=== PATIENT | female | born 1930 | race Asian ===

== ENCOUNTER 2019-03-16 16:40 | Inpatient (IN) | payer MEDICARE, MEDICAID ==
[2019-03-16] VITALS (26 sets, daily range): BP systolic 69–123; BP diastolic 31–60
[~2019-03-16] VITALS: Ht 154.9 cm; Wt 52.2 kg
[2019-03-16] MEDS ORDERED: MINOXIDIL2.5 MG PO (17:10)
[2019-03-16] MEDS ORDERED: ADALAT10 MG ORAL (17:10)
[2019-03-16] MEDS ORDERED: COREG6.25 MG ORAL (17:10)
[2019-03-16] MEDS ORDERED: CALCIUM + VITA1 EAC1 PO (17:10)
[2019-03-16] MEDS ORDERED: COLACE100 MG ORAL (17:10)
[2019-03-16] MEDS ORDERED: FOLIC ACID1 MG ORAL (17:11)
[2019-03-16] MEDS ORDERED: ATORVASTATIN CA10 MG ORAL (17:11)
[2019-03-16] MEDS ORDERED: MELATONIN3 M3 PO (17:11)
[2019-03-16] MEDS ORDERED: MULTIVITAMINS1 EAC8 ORAL (17:11)
[2019-03-16] MEDS ORDERED: SENNA8.6 M2 PO (17:11)
[2019-03-16] MEDS ORDERED: AMIODARONE HCL400 M1 ORAL (17:11)
[2019-03-16] MEDS ORDERED: ELIQUIS2.5 MG PO (17:11)
[2019-03-16 17:38] LABS: BASOPHILS % (AUTO) 0.7 % (0.0-2.0); EOSINOPHILS % (AUTO) 1.3 % (0.0-3.0); HEMATOCRIT 26.2 % (37.0-47.0); HEMOGLOBIN 8.7 G/DL (12.0-16.0); LYMPHOCYTES % (AUTO) 25.5 % (20.0-45.0); MEAN CORPUSCULAR VOLUME 96 FL (80-99); MONOCYTES % (AUTO) 12.9 % (1.0-10.0); NEUTROPHILS % (AUTO) 59.7 % (45.0-75.0); PLATELET COUNT 122 K/UL (150-450); RED BLOOD COUNT 2.72 M/UL (4.20-5.40); RED CELL DISTRIBUTION WIDTH 15.7 % (11.6-14.8); WHITE BLOOD COUNT 6.1 K/UL (4.8-10.8)
[2019-03-16 17:42] LABS: INR 1.2 (0.9-1.1)
[2019-03-16 17:57] LABS: APPEARANCE,URINE CLEAR; BILIRUBIN, URINE NEGATIVE (NEGATIVE); GLUCOSE, URINE (UA) 2+ (NEGATIVE); KETONES,URINE NEGATIVE (NEGATIVE); LEUKOCYTE ESTERASE ,URINE NEGATIVE (NEGATIVE); NITRITE,URINE NEGATIVE (NEGATIVE); PH,URINE 8 (4.5-8.0); PROTEIN,URINE 4+ (NEGATIVE); UROBILINOGEN,URINE NORMAL MG/DL (0.0-1.0)
[2019-03-16 18:06] LABS: ANION GAP 8 mmol/L (5-15); BLOOD UREA NITROGEN 17 mg/dL (7-18); CALCIUM 7.5 MG/DL (8.5-10.1); CARBON DIOXIDE 31 MMOL/L (21-32); CHLORIDE 102 MMOL/L (98-107); CREATININE 4.2 MG/DL (0.55-1.30); POTASSIUM 3.4 MMOL/L (3.5-5.1); SODIUM 141 MMOL/L (136-145)
--- NOTE | 2019-03-16 18:11 | Diagnostic Imaging Report ---
EXAM: XR Chest, 1 View CLINICAL HISTORY: SOB TECHNIQUE: Frontal view of the chest. COMPARISON: No relevant prior studies available. FINDINGS: Lungs: Retrocardiac consolidation or atelectatic correlate to exclude pneumonia. Diffuse linear interstitial prominence bilaterally. Pleural space: Bilateral pleural effusions, moderate on the right and small on the left with passive atelectasis. No pneumothorax. Heart: Cardiomegaly. Mediastinum: Unremarkable. Bones/joints: Unremarkable. Vasculature: Left axillary region vascular stent. IMPRESSION: 1. Findings suggesting CHF or volume overload. 2. Retrocardiac consolidation or atelectatic correlate to exclude pneumonia. 3. Cardiomegaly. 4. Additional findings above.
[2019-03-16 18:15] LABS: COLOR,URINE YELLOW
[2019-03-16] MEDS ORDERED: DOPamine 400mg/250ml 250 ML IV SCH (18:15)
[2019-03-16 18:19] LABS: ALANINE AMINOTRANSFERASE 14 U/L (12-78); ALBUMIN 2.5 G/DL (3.4-5.0); ALBUMIN/GLOBULIN RATIO 0.7 (1.0-2.7); ALKALINE PHOSPHATASE 92 U/L (46-116); ASPARTATE AMINO TRANSFERASE 22 U/L (15-37); BILIRUBIN,TOTAL 0.7 MG/DL (0.2-1.0); CKMB < 0.5 NG/ML (0.0-3.6); CREATINE KINASE 18 U/L (26-308)
[2019-03-16] MEDS ORDERED: Lidocaine 1% MPF 10mg/ml 5ml INJ ONE (19:30)
--- NOTE | 2019-03-16 20:03 | Emergency Room Report ---
History of Present Illness General Chief Complaint: General Complaint Source: Patient, Medical Record Present Illness HPI Patient is an a 88-year-old female brought in by EMS after increased generalized weakness and dizziness. Patient had prior history of end-stage renal disease and was dialyzed yesterday. Was sent in from [facility]. Patient primary doctor is Dr. Lambert. But noted to be hypotensive patient was noted to be hypotensive in the field. She had a slow heart rate. She does take blood pressure medications regularly.Patient was noted to be DNR but does have limited interventions.She denies any current locations of pain. She does report having some prior surgery to the left lower extremity.Dialysis access was noted to be in the left upper extremity. Allergies: Coded Allergies: No Known Allergies (Unverified , 03/16/19) Patient History Past Medical History: see triage record Reviewed Nursing Documentation: PMH: Agreed; PSxH: Agreed Nursing Documentation-PMH Past Medical History: No History, Except For Hx Cardiac Problems: Yes Hx Hypertension: Yes Hx Dialysis: Yes - access to left upper arm Review of Systems All Other Systems: negative except mentioned in HPI Physical Exam Vital Signs Date Time Temp Pulse Resp B/P (MAP) Pulse Ox O2 Delivery O2 Flow Rate FiO2 03/16/19 16:40 44 14 77/49 (58) 99 Non-Rebreather 15.0 03/16/19 16:40 97.8 General Appearance: alert, Chronically Ill ENT: normal ENT inspection Neck: supple, limited range of motion Respiratory: lungs clear, normal breath sounds Cardiovascular #1: normal peripheral pulses, no edema Gastrointestinal: normal inspection, non tender, soft Musculoskeletal: back normal, other - Bilateral lower extremity pulses intact. Neurologic: alert, motor weakness Psychiatric: normal inspection Skin: no rash Procedures Critical Care Time Critical Care Time Patient had a critical medical condition which untreated could potentially result in life or limb threatening injury. Total critical care time excluding procedures approximately 45 minutes. Central Line Central Line : Consent: Written Central Line Lumen: triple Maximal Sterile Barrier Tech: yes cap, yes mask, yes sterile gown, yes sterile gloves, yes large sterile sheet, yes hand hygiene, yes chlorhexidine prep Central Line Postion: femoral (R) Anesthesia: local cc's of anesthesia: 7 Complications: none Central Line Post Position: sutured, good blood return Attempts: One Patient Tolerated: Well Complications: None Medical Decision Making Diagnostic Impression: Primary Impression: Symptomatic bradycardia Additional Impression: End stage renal disease ER Course Patient present for increased generalized weakness. Differential diagnosis includes not limited to bradycardia, myocardial infarction, hyperkalemia, medication overdose among others. Because of complexity of patient's case laboratory tests and imaging studies were ordered. EKG interpreted by me showed atrial fibrillation with slow ventricular response rate of 46. Patient started on dopamine with some improvement in her heart rate and blood pressure. Patient was consented for central venous catheter and a right-sided femoral vein line was placed with ultrasound guidance. Patient tolerated this well. She was maintained on dopamine. Dr. Edwardo Liu was contacted for inpatient management due to covering physician for Dr. Lambert. Labs Test 03/16/19 17:18 03/16/19 17:20 03/16/19 18:47 White Blood Count 6.1 K/UL (4.8-10.8) Red Blood Count 2.72 M/UL (4.20-5.40) Hemoglobin 8.7 G/DL (12.0-16.0) Hematocrit 26.2 % (37.0-47.0) Mean Corpuscular Volume 96 FL (80-99) Mean Corpuscular Hemoglobin 32.1 PG (27.0-31.0) Mean Corpuscular Hemoglobin Concent 33.4 G/DL (32.0-36.0) Red Cell Distribution Width 15.7 % (11.6-14.8) Platelet Count 122 K/UL (150-450) Mean Platelet Volume 8.2 FL (6.5-10.1) Neutrophils (%) (Auto) 59.7 % (45.0-75.0) Lymphocytes (%) (Auto) 25.5 % (20.0-45.0) Monocytes (%) (Auto) 12.9 % (1.0-10.0) Eosinophils (%) (Auto) 1.3 % (0.0-3.0) Basophils (%) (Auto) 0.7 % (0.0-2.0) Prothrombin Time 13.0 SEC (9.30-11.50) Prothromb Time International Ratio 1.2 (0.9-1.1) Activated Partial Thromboplast Time 38 SEC (23-33) Sodium Level 141 MMOL/L (136-145) Potassium Level 3.4 MMOL/L (3.5-5.1) Chloride Level 102 MMOL/L (98-107) Carbon Dioxide Level 31 MMOL/L (21-32) Anion Gap 8 mmol/L (5-15) Blood Urea Nitrogen 17 mg/dL (7-18) Creatinine 4.2 MG/DL (0.55-1.30) Estimat Glomerular Filtration Rate mL/min (>60) Glucose Level 227 MG/DL (74-106) Calcium Level 7.5 MG/DL (8.5-10.1) Total Bilirubin 0.7 MG/DL (0.2-1.0) Aspartate Amino Transf (AST/SGOT) 22 U/L (15-37) Alanine Aminotransferase (ALT/SGPT) 14 U/L (12-78) Alkaline Phosphatase 92 U/L (46-116) Total Creatine Kinase 18 U/L (26-308) Creatine Kinase MB < 0.5 NG/ML (0.0-3.6) Creatine Kinase MB Relative Index 2.7 Troponin I 0.021 ng/mL (0.000-0.056) Total Protein 6.2 G/DL (6.4-8.2) Albumin 2.5 G/DL (3.4-5.0) Globulin 3.7 g/dL Albumin/Globulin Ratio 0.7 (1.0-2.7) Urine Color Yellow Urine Appearance Clear Urine pH 8 (4.5-8.0) Urine Specific [place] 1.010 (1.005-1.035) Urine Protein 4+ (NEGATIVE) Urine Glucose (UA) 2+ (NEGATIVE) Urine Ketones Negative (NEGATIVE) Urine Blood 2+ (NEGATIVE) Urine Nitrite Negative (NEGATIVE) Urine Bilirubin Negative (NEGATIVE) Urine Urobilinogen Normal MG/DL (0.0-1.0) Urine Leukocyte Esterase Negative (NEGATIVE) Urine RBC 5-10 /HPF (0 - 2) Urine WBC 2-4 /HPF (0 - 2) Urine Squamous Epithelial Cells Moderate /LPF (NONE/OCC) Urine Bacteria Few /HPF (NONE) Lactic Acid Level 1.50 mmol/L (0.66-2.22) EKG Diagnostic Results Rate: bradycardiac Last Vital Signs Date Time Temp Pulse Resp B/P (MAP) Pulse Ox O2 Delivery O2 Flow Rate FiO2 03/16/19 19:20 98.3 66 15 107/38 99 Nasal Cannula 3.0 Status: improved Disposition: ADMITTED INPATIENT Condition: Critical Referrals: NON PHYSICIAN (PCP) Demar Laguna MD Mar 16, 2019 20:03
[2019-03-16] MEDS: DOPamine 400mg/250ml 250 ML IV SCH (21:49)
[2019-03-17] VITALS (48 sets, daily range): BP systolic 99–165; BP diastolic 29–82
--- NOTE | 2019-03-17 08:30 | History and Physical Report ---
DATE OF ADMISSION: 03/16/2019 CHIEF COMPLAINT: Bradycardia and shortness of breath. HISTORY OF PRESENT ILLNESS: The patient is an 88-year-old female. She has a history of end-stage renal disease, on chronic hemodialysis, hypertensive heart disease. She has a history of congestive heart failure and diabetes, who presented from a [place] [facility] facility, complaints of shortness of breath. On evaluation in the emergency room, the patient was hypotensive and bradycardic. She is a DNR. She is on several medications that can cause bradycardia. She was started on dopamine drip. Her blood pressure and heart rate improved and she is now admitted to intensive care unit. She is currently resting comfortably and is in no distress. PAST MEDICAL HISTORY: As above. Please add history of asthma, osteoporosis, anemia of chronic disease, malnutrition, AFib, hard of hearing, history of DVT, history of cholecystectomy. CURRENT MEDICATIONS: Reconciled and reviewed. ALLERGIES: None. FAMILY HISTORY: None. SOCIAL HISTORY: There is no known history of tobacco, ethanol, or drugs. REVIEW OF SYSTEMS: Unobtainable as the patient is confused. PHYSICAL EXAMINATION: VITAL SIGNS: Temperature 98 degrees, pulse 69, respirations 18, and blood pressure 117/39. GENERAL: The patient well-developed, no apparent distress. HEART: Regular rate and rhythm. LUNGS: Clear. ABDOMEN: Soft, nontender, nondistended. EXTREMITIES: Without clubbing, cyanosis, or edema. LABORATORY DATA: White count is 6, hemoglobin 8.7, hematocrit 26, platelet count of 122. Sodium 141, potassium 3.4, creatinine was 4.2. Lactic acid was 2.1. Urine was clear. ASSESSMENT: This is an elderly female with a history of end-stage renal disease, congestive heart failure, paroxysmal atrial fibrillation, admitted with bradycardia and hypotension suspect secondary to some of her antihypertensive medications. PLAN: 1. We will hold the patient's Coreg. 2. Continue dopamine drip. We will try to wean off. 3. Check thyroid function test. 4. Cardiology evaluation will be obtained. 5. Renal consultation for continuation of the patient's hemodialysis. 6. echo. 7. Check venous duplex of the legs. Edwardo Liu M.D. DR: ODILIA JOB#: [id number] CC:
[2019-03-17] MEDS ORDERED: Minoxidil 2.5mg tab ORAL SCH (09:00)
[2019-03-17] MEDS ORDERED: NIFEdipine 10mg cap ORAL SCH (09:00)
[2019-03-17] MEDS: DOPamine 400mg/250ml 250 ML IV SCH (09:22)
[2019-03-17] MEDS: Docusate 100mg cap ORAL SCH (09:22)
[2019-03-17] MEDS: Multivitamin w/Minerals tab ORAL SCH (09:22)
[2019-03-17] MEDS: Eliquis 2.5mg tablet ORAL SCH ×2 (09:24→17:58)
[2019-03-17 09:54] LABS: BASOPHILS % (AUTO) 0.8 % (0.0-2.0); EOSINOPHILS % (AUTO) 1.3 % (0.0-3.0); HEMOGLOBIN 9.5 G/DL (12.0-16.0); LYMPHOCYTES % (AUTO) 23.1 % (20.0-45.0); MEAN CORPUSCULAR VOLUME 95 FL (80-99); MONOCYTES % (AUTO) 13.3 % (1.0-10.0); NEUTROPHILS % (AUTO) 61.5 % (45.0-75.0); PLATELET COUNT 157 K/UL (150-450); RED BLOOD COUNT 2.93 M/UL (4.20-5.40); RED CELL DISTRIBUTION WIDTH 15.5 % (11.6-14.8); WHITE BLOOD COUNT 6.8 K/UL (4.8-10.8)
[2019-03-17 10:22] LABS: ALANINE AMINOTRANSFERASE 19 U/L (12-78); ALBUMIN 2.6 G/DL (3.4-5.0); ALBUMIN/GLOBULIN RATIO 0.6 (1.0-2.7); ALKALINE PHOSPHATASE 97 U/L (46-116); ANION GAP 5 mmol/L (5-15); ASPARTATE AMINO TRANSFERASE 30 U/L (15-37); BILIRUBIN,TOTAL 0.6 MG/DL (0.2-1.0); BLOOD UREA NITROGEN 21 mg/dL (7-18); CALCIUM 8.3 MG/DL (8.5-10.1); CARBON DIOXIDE 33 MMOL/L (21-32); CHLORIDE 99 MMOL/L (98-107); CREATININE 5.4 MG/DL (0.55-1.30); POTASSIUM 3.8 MMOL/L (3.5-5.1); SODIUM 137 MMOL/L (136-145)
[2019-03-17] MEDS: traMADol 50mg tab ORAL PRN (12:23)
--- NOTE | 2019-03-17 18:45 | Consultation ---
DATE OF CONSULTATION: 03/17/2019 REASON FOR CONSULTATION: End-stage renal disease, on hemodialysis. HISTORY OF PRESENT ILLNESS: The patient is an 88-year-old female on chronic hemodialysis Monday, Monday, and Monday, was brought into the emergency room for further evaluation and care of hypotension and bradycardia. The patient was initiated on dopamine drip. Heart rate currently stable. She did undergo her hemodialysis on Monday. Electrolytes are stable. The patient is in no distress and no overt shortness of breath. PAST MEDICAL HISTORY: 1. End-stage renal disease, on dialysis. 2. Atrial fibrillation. 3. DVT. 4. Cholelithiasis. 5. Osteoporosis. 6. Anemia of chronic kidney disease. PAST SURGICAL HISTORY: 1. Dialysis access placement. 2. Cholecystectomy. ALLERGIES: No known drug allergies. FAMILY HISTORY: Positive for hypertension. SOCIAL HISTORY: No tobacco, alcohol, or illicit drug use. REVIEW OF SYSTEMS: NEUROLOGIC: The patient denies headache, change in vision, syncope, or presyncopal episodes. CARDIOVASCULAR: No current chest pain, palpitations, or angina. PULMONARY: No difficulty breathing, productive cough, or sputum. GASTROINTESTINAL/GENITOURINARY: No change in urinary or bowel habits. No nausea, vomiting, or diarrhea. ENDOCRINOLOGY: No night sweats, fevers, or chills. MUSCULOSKELETAL: The patient is feeling weak, tired, and fatigued. PHYSICAL EXAMINATION: VITAL SIGNS: Blood pressure 127/46, respiratory rate 22, pulse 64, and 100% oxygen saturation on room air. GENERAL: The patient is awake and alert, not otherwise in distress. HEENT: Extraocular muscles intact. No lymphadenopathy noted. CARDIOVASCULAR: S1 and S2. No rubs or gallops. PULMONARY: Clear to auscultation bilaterally with upper rhonchi. ABDOMEN: Nondistended and nontender. EXTREMITIES: No edema. LABORATORY DATA: Labs dated 03/17/2019, sodium 137, potassium 3.8, creatinine 5.4, and calcium 8.3. Hemoglobin 9.5, white cell count 6.8, and platelet count 157,000. ASSESSMENT AND PLAN: 1. End-stage renal disease, on hemodialysis. The patient will undergo hemodialysis on her Monday, Monday, Monday session. The patient is not uremic nor volume overload currently. 2. Bradycardia. We will defer to Cardiology. 3. Anemia of chronic kidney disease. We will restart Epogen as hemoglobin less than 10. 4. Hypotension. The patient currently on dopamine drip. Andres Guajardo MD DR: Remedios JOB#: [id number] CC:
[2019-03-17] MEDS ORDERED: Dyna-Hex 2% Top Sol 2oz TOPIC SCH (20:00)
[2019-03-18] VITALS (26 sets, daily range): BP systolic 130–179; BP diastolic 38–57
[2019-03-18 06:21] LABS: BASOPHILS % (AUTO) 0.7 % (0.0-2.0); EOSINOPHILS % (AUTO) 3.1 % (0.0-3.0); HEMATOCRIT 25.5 % (37.0-47.0); HEMOGLOBIN 8.5 G/DL (12.0-16.0); LYMPHOCYTES % (AUTO) 33.6 % (20.0-45.0); MEAN CORPUSCULAR VOLUME 96 FL (80-99); MONOCYTES % (AUTO) 13.5 % (1.0-10.0); NEUTROPHILS % (AUTO) 49.2 % (45.0-75.0); PLATELET COUNT 134 K/UL (150-450); RED BLOOD COUNT 2.66 M/UL (4.20-5.40); RED CELL DISTRIBUTION WIDTH 15.9 % (11.6-14.8); WHITE BLOOD COUNT 5.8 K/UL (4.8-10.8)
[2019-03-18 06:35] LABS: ALANINE AMINOTRANSFERASE 11 U/L (12-78); ALBUMIN 2.3 G/DL (3.4-5.0); ALBUMIN/GLOBULIN RATIO 0.6 (1.0-2.7); ALKALINE PHOSPHATASE 86 U/L (46-116); ANION GAP 7 mmol/L (5-15); ASPARTATE AMINO TRANSFERASE 18 U/L (15-37); BILIRUBIN,TOTAL 0.5 MG/DL (0.2-1.0); BLOOD UREA NITROGEN 28 mg/dL (7-18); CARBON DIOXIDE 32 MMOL/L (21-32); CHLORIDE 98 MMOL/L (98-107); CREATININE 6.5 MG/DL (0.55-1.30); POTASSIUM 3.5 MMOL/L (3.5-5.1); SODIUM 137 MMOL/L (136-145)
[2019-03-18] MEDS: Multivitamin w/Minerals tab ORAL SCH (08:34)
[2019-03-18] MEDS: Docusate 100mg cap ORAL SCH (08:35)
[2019-03-18] MEDS: Eliquis 2.5mg tablet ORAL SCH ×2 (08:35→18:11)
[2019-03-18] MEDS: traMADol 50mg tab ORAL PRN (11:42)
[2019-03-18] MEDS ORDERED: NIFEDIPINE ER90 M2 ORAL (14:41)
--- NOTE | 2019-03-18 17:10 | General Progress Note ---
Assessment/Plan Problem List: (1) Symptomatic bradycardia ICD Codes: R00.1 - Bradycardia, unspecified SNOMED: 26663922, 403515257 (2) End stage renal disease ICD Codes: N18.6 - End stage renal disease SNOMED: 81047137, 684014505 (3) Hypotension ICD Codes: I95.9 - Hypotension, unspecified SNOMED: 43695875 Status: stable Assessment/Plan: to tele HD per renal Subjective ROS Limited/Unobtainable: No Constitutional: Reports: malaise, weakness HEENT: Reports: no symptoms Cardiovascular: Reports: no symptoms Respiratory: Reports: cough Gastrointestinal/Abdominal: Reports: no symptoms Genitourinary: Reports: no symptoms Neurologic/Psychiatric: Reports: no symptoms Endocrine: Reports: no symptoms Hematologic/Lymphatic: Reports: no symptoms Allergies: Coded Allergies: No Known Allergies (Unverified , 03/16/19) All Systems: reviewed and negative except above Subjective no events. of dopamine. bradycardia better. no fever or chills. Objective Last 24 Hour Vital Signs Date Time Temp Pulse Resp B/P (MAP) Pulse Ox O2 Delivery O2 Flow Rate FiO2 03/18/19 15:00 65 16 130/40 100 Nasal Cannula 3.0 03/18/19 14:00 65 13 131/46 100 Nasal Cannula 3.0 03/18/19 13:00 61 15 145/45 100 Nasal Cannula 3.0 03/18/19 12:00 97.7 62 19 178/49 100 Nasal Cannula 2.0 03/18/19 12:00 Nasal Cannula 2.0 03/18/19 11:42 62 03/18/19 11:00 66 15 150/44 100 Nasal Cannula 3.0 03/18/19 10:00 67 16 155/47 100 Nasal Cannula 3.0 03/18/19 09:30 67 17 160/47 100 Nasal Cannula 3.0 03/18/19 09:00 66 14 139/38 99 Nasal Cannula 3.0 03/18/19 08:00 66 14 139/38 99 Nasal Cannula 3.0 03/18/19 08:00 Nasal Cannula 3.0 03/18/19 07:49 68 03/18/19 07:00 99.1 63 13 135/43 100 Nasal Cannula 3.0 03/18/19 06:00 68 17 146/46 99 Nasal Cannula 03/18/19 05:00 61 13 132/45 100 Nasal Cannula 03/18/19 04:00 62 03/18/19 04:00 Nasal Cannula 3.0 03/18/19 04:00 98.3 65 15 148/46 100 Nasal Cannula 03/18/19 03:00 61 13 156/55 100 Nasal Cannula 03/18/19 02:00 64 17 153/56 97 Nasal Cannula 03/18/19 01:30 61 13 157/54 100 Nasal Cannula 03/18/19 01:00 60 12 148/54 100 Nasal Cannula 03/18/19 00:00 62 03/18/19 00:00 98.4 61 13 151/57 100 Nasal Cannula 03/18/19 00:00 Nasal Cannula 3.0 03/17/19 23:00 60 15 147/54 100 Nasal Cannula 03/17/19 22:00 60 13 152/54 100 Nasal Cannula 03/17/19 21:00 59 13 146/55 100 Nasal Cannula 03/17/19 20:00 98.3 59 14 160/66 100 Nasal Cannula 03/17/19 20:00 61 03/17/19 20:00 Nasal Cannula 3.0 03/17/19 19:00 62 18 148/57 100 Nasal Cannula 3.0 03/17/19 18:45 62 18 148/57 100 Nasal Cannula 3.0 03/17/19 18:30 64 22 134/57 100 Nasal Cannula 3.0 03/17/19 18:15 64 20 136/54 100 Nasal Cannula 3.0 03/17/19 18:00 65 23 139/61 100 Nasal Cannula 3.0 03/17/19 17:45 61 21 144/60 99 Nasal Cannula 3.0 03/17/19 17:30 63 19 143/62 98 Nasal Cannula 3.0 03/17/19 17:30 143/62 03/17/19 17:15 60 14 141/45 100 Nasal Cannula 3.0 Intake and Output 03/17/19 03/18/19 19:00 07:00 Intake Total 483.70219 ml 50 ml Balance 483.65088 ml 50 ml Intake Oral 360 ml 50 ml IV Total 123.35769 ml # Bowel Movements 1 Laboratory Tests 03/18/19 05:00: White Blood Count 5.8, Red Blood Count 2.66L, Hemoglobin 8.5L, Hematocrit 25.5L , Mean Corpuscular Volume 96, Mean Corpuscular Hemoglobin 31.9H, Mean Corpuscular Hemoglobin Concent 33.3, Red Cell Distribution Width 15.9H, Platelet Count 134L, Mean Platelet Volume 7.7, Neutrophils (%) (Auto) 49.2, Lymphocytes (%) (Auto) 33.6, Monocytes (%) (Auto) 13.5H, Eosinophils (%) (Auto) 3.1H, Basophils (%) (Auto) 0.7, Sodium Level 137, Potassium Level 3.5, Chloride Level 98, Carbon Dioxide Level 32, Anion Gap 7, Blood Urea Nitrogen 28H, Creatinine 6.5H, Estimat Glomerular Filtration Rate , Glucose Level 100#, Calcium Level 8.0L, Total Bilirubin 0.5, Aspartate Amino Transf (AST/SGOT) 18, Alanine Aminotransferase (ALT/SGPT) 11L, Alkaline Phosphatase 86, Total Protein 5.9L, Albumin 2.3L, Globulin 3.6, Albumin/Globulin Ratio 0.6L 03/18/19 13:00: Hepatitis B Surface Antigen [Pending] Height (Feet): 5 Height (Inches): 1.00 Weight (Pounds): 120 General Appearance: WD/WN, no apparent distress Neck: supple Cardiovascular: regular rhythm Respiratory/Chest: lungs clear Abdomen: normal bowel sounds, non tender, soft, no organomegaly Edema: no edema noted Arm (L), no edema noted Arm (R), no edema noted Leg (L), no edema noted Leg (R), no edema noted Pedal (L), no edema noted Pedal (R), no edema noted Generalized 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
--- NOTE | 2019-03-18 18:37 | Nephrology Progress Note ---
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 Plan HR normal, stable on HD Subjective Constitutional: Reports: weakness HEENT: Reports: other - poor hear Genitourinary: Reports: no symptoms Neurologic/Psychiatric: Reports: no symptoms Objective Objective Last 24 Hour Vital Signs Date Time Temp Pulse Resp B/P (MAP) Pulse Ox O2 Delivery O2 Flow Rate FiO2 03/18/19 18:00 65 20 146/40 100 Nasal Cannula 2.0 03/18/19 17:00 65 21 148/41 100 Nasal Cannula 2.0 03/18/19 16:00 Nasal Cannula 2.0 03/18/19 16:00 99.9 69 17 146/41 100 Nasal Cannula 2.0 03/18/19 15:00 65 16 130/40 100 Nasal Cannula 3.0 03/18/19 14:00 65 13 131/46 100 Nasal Cannula 3.0 03/18/19 13:00 61 15 145/45 100 Nasal Cannula 3.0 03/18/19 12:00 97.7 62 19 178/49 100 Nasal Cannula 2.0 03/18/19 12:00 Nasal Cannula 2.0 03/18/19 11:42 62 03/18/19 11:00 66 15 150/44 100 Nasal Cannula 3.0 03/18/19 10:00 67 16 155/47 100 Nasal Cannula 3.0 03/18/19 09:30 67 17 160/47 100 Nasal Cannula 3.0 03/18/19 09:00 66 14 139/38 99 Nasal Cannula 3.0 03/18/19 08:00 66 14 139/38 99 Nasal Cannula 3.0 03/18/19 08:00 Nasal Cannula 3.0 03/18/19 07:49 68 03/18/19 07:00 99.1 63 13 135/43 100 Nasal Cannula 3.0 03/18/19 06:00 68 17 146/46 99 Nasal Cannula 03/18/19 05:00 61 13 132/45 100 Nasal Cannula 03/18/19 04:00 62 03/18/19 04:00 Nasal Cannula 3.0 03/18/19 04:00 98.3 65 15 148/46 100 Nasal Cannula 03/18/19 03:00 61 13 156/55 100 Nasal Cannula 03/18/19 02:00 64 17 153/56 97 Nasal Cannula 03/18/19 01:30 61 13 157/54 100 Nasal Cannula 03/18/19 01:00 60 12 148/54 100 Nasal Cannula 03/18/19 00:00 62 03/18/19 00:00 98.4 61 13 151/57 100 Nasal Cannula 03/18/19 00:00 Nasal Cannula 3.0 03/17/19 23:00 60 15 147/54 100 Nasal Cannula 03/17/19 22:00 60 13 152/54 100 Nasal Cannula 03/17/19 21:00 59 13 146/55 100 Nasal Cannula 03/17/19 20:00 98.3 59 14 160/66 100 Nasal Cannula 03/17/19 20:00 61 03/17/19 20:00 Nasal Cannula 3.0 03/17/19 19:00 62 18 148/57 100 Nasal Cannula 3.0 03/17/19 18:45 62 18 148/57 100 Nasal Cannula 3.0 Intake and Output 03/17/19 03/18/19 19:00 07:00 Intake Total 483.14711 ml 50 ml Balance 483.59632 ml 50 ml Intake Oral 360 ml 50 ml IV Total 123.39298 ml # Bowel Movements 1 Laboratory Tests 03/18/19 05:00: White Blood Count 5.8, Red Blood Count 2.66L, Hemoglobin 8.5L, Hematocrit 25.5L , Mean Corpuscular Volume 96, Mean Corpuscular Hemoglobin 31.9H, Mean Corpuscular Hemoglobin Concent 33.3, Red Cell Distribution Width 15.9H, Platelet Count 134L, Mean Platelet Volume 7.7, Neutrophils (%) (Auto) 49.2, Lymphocytes (%) (Auto) 33.6, Monocytes (%) (Auto) 13.5H, Eosinophils (%) (Auto) 3.1H, Basophils (%) (Auto) 0.7, Sodium Level 137, Potassium Level 3.5, Chloride Level 98, Carbon Dioxide Level 32, Anion Gap 7, Blood Urea Nitrogen 28H, Creatinine 6.5H, Estimat Glomerular Filtration Rate , Glucose Level 100#, Calcium Level 8.0L, Total Bilirubin 0.5, Aspartate Amino Transf (AST/SGOT) 18, Alanine Aminotransferase (ALT/SGPT) 11L, Alkaline Phosphatase 86, Total Protein 5.9L, Albumin 2.3L, Globulin 3.6, Albumin/Globulin Ratio 0.6L 03/18/19 13:00: Hepatitis B Surface Antigen [Pending] Height (Feet): 5 Height (Inches): 1.00 Weight (Pounds): 120 General Appearance: thin EENT: normal ENT inspection Neck: normal alignment Cardiovascular: normal rate, regular rhythm Respiratory/Chest: lungs clear Abdomen: non tender, soft, no organomegaly 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
[2019-03-18] MEDS: Epoetin Alfa-EPBX(ESRD on dialysis)3000 units/ml vial SUBQ SCH (20:51)
[2019-03-18] MEDS: Epoetin Alfa-EPBX(ESRD on dialysis)4000 units/ml vial SUBQ SCH (20:51)
[2019-03-18] MEDS ORDERED: Epoetin Alfa-EPBX(ESRD on dialysis)10,000 unit/ml vial SUBQ SCH (21:00)
[2019-03-18] MEDS: DOPamine 400mg/250ml 250 ML IV SCH (21:30)
[2019-03-19] VITALS (24 sets, daily range): BP systolic 141–202; BP diastolic 32–129
--- NOTE | 2019-03-19 06:04 | General Progress Note ---
Assessment/Plan Problem List: (1) Symptomatic bradycardia ICD Codes: R00.1 - Bradycardia, unspecified SNOMED: 85040082, 355890198 (2) End stage renal disease ICD Codes: N18.6 - End stage renal disease SNOMED: 61416255, 883255187 (3) Hypotension ICD Codes: I95.9 - Hypotension, unspecified SNOMED: 86950187 Status: stable Assessment/Plan: to tele HD per renal add hydralazine continue to monitor hr cards eval pending. echo pending Subjective ROS Limited/Unobtainable: No Constitutional: Reports: malaise, weakness HEENT: Reports: no symptoms Cardiovascular: Reports: no symptoms Respiratory: Reports: no symptoms Gastrointestinal/Abdominal: Reports: no symptoms Genitourinary: Reports: no symptoms Neurologic/Psychiatric: Reports: no symptoms Endocrine: Reports: no symptoms Hematologic/Lymphatic: Reports: no symptoms Allergies: Coded Allergies: No Known Allergies (Unverified , 03/16/19) All Systems: reviewed and negative except above Subjective no events. of dopamine. bradycardia better. no fever or chills. bp trending up. on nasal cannula Objective Last 24 Hour Vital Signs Date Time Temp Pulse Resp B/P (MAP) Pulse Ox O2 Delivery O2 Flow Rate FiO2 03/19/19 05:00 58 11 156/40 100 Nasal Cannula 2.0 03/19/19 04:01 Nasal Cannula 2.0 03/19/19 04:00 97.9 62 15 152/39 100 Nasal Cannula 2.0 03/19/19 04:00 62 03/19/19 03:00 60 13 146/43 100 Nasal Cannula 2.0 03/19/19 02:00 60 13 142/33 100 Nasal Cannula 2.0 03/19/19 01:00 60 12 141/32 100 Nasal Cannula 2.0 03/19/19 00:00 98.5 62 14 147/39 100 Nasal Cannula 2.0 03/19/19 00:00 64 03/19/19 00:00 Nasal Cannula 2.0 03/18/19 23:00 68 17 163/47 100 Nasal Cannula 2.0 03/18/19 22:00 64 17 153/42 100 Nasal Cannula 2.0 03/18/19 21:30 160/44 03/18/19 21:00 65 17 161/44 100 Nasal Cannula 2.0 03/18/19 20:00 67 03/18/19 20:00 Nasal Cannula 2.0 03/18/19 20:00 98.7 68 21 153/39 100 Nasal Cannula 2.0 03/18/19 19:00 66 21 156/42 100 Nasal Cannula 2.0 03/18/19 18:00 65 20 146/40 100 Nasal Cannula 2.0 03/18/19 17:00 65 21 148/41 100 Nasal Cannula 2.0 03/18/19 16:11 68 03/18/19 16:00 Nasal Cannula 2.0 03/18/19 16:00 99.9 69 17 146/41 100 Nasal Cannula 2.0 03/18/19 15:00 65 16 130/40 100 Nasal Cannula 3.0 03/18/19 14:00 65 13 131/46 100 Nasal Cannula 3.0 03/18/19 13:00 61 15 145/45 100 Nasal Cannula 3.0 03/18/19 12:00 97.7 62 19 178/49 100 Nasal Cannula 2.0 03/18/19 12:00 Nasal Cannula 2.0 03/18/19 11:42 62 03/18/19 11:00 66 15 150/44 100 Nasal Cannula 3.0 03/18/19 10:00 67 16 155/47 100 Nasal Cannula 3.0 03/18/19 09:30 67 17 160/47 100 Nasal Cannula 3.0 03/18/19 09:00 66 14 139/38 99 Nasal Cannula 3.0 03/18/19 08:00 66 14 139/38 99 Nasal Cannula 3.0 03/18/19 08:00 Nasal Cannula 3.0 03/18/19 07:49 68 03/18/19 07:00 99.1 63 13 135/43 100 Nasal Cannula 3.0 Intake and Output 03/18/19 03/19/19 19:00 07:00 Intake Total 2110 ml 120 ml Output Total 15 ml Balance 2110 ml 105 ml Intake Oral 110 ml 120 ml Hemodialysis 2000 ml Output Urine Total 15 ml # Bowel Movements 2 Laboratory Tests 03/18/19 13:00: Hepatitis B Surface Antigen [Pending] Height (Feet): 5 Height (Inches): 1.00 Weight (Pounds): 120 Objective General Appearance: WD/WN, no apparent distress Neck: supple Cardiovascular: regular rhythm Respiratory/Chest: lungs clear Abdomen: normal bowel sounds, non tender, soft, no organomegaly Edema: no edema noted Arm (L), no edema noted Arm (R), no edema noted Leg (L), no edema noted Leg (R), no edema noted Pedal (L), no edema noted Pedal (R), no edema noted Generalized 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
[2019-03-19] MEDS: HydrALAZINE 25mg tab ORAL SCH ×2 (08:48→12:45)
[2019-03-19] MEDS: Multivitamin w/Minerals tab ORAL SCH (08:48)
[2019-03-19] MEDS: Docusate 100mg cap ORAL SCH (08:49)
[2019-03-19] MEDS: Eliquis 2.5mg tablet ORAL SCH ×2 (08:50→17:28)
[2019-03-19] MEDS ORDERED: HydrALAZINE 25mg tab ORAL SCH (15:21)
--- NOTE | 2019-03-19 17:31 | Nephrology Progress Note ---
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 (6) CHF (congestive heart failure) (7) Malnutrition of moderate degree Plan HR normal, stable on HD next 03/20 Subjective ROS Limited/Unobtainable: Yes Objective Objective Last 24 Hour Vital Signs Date Time Temp Pulse Resp B/P (MAP) Pulse Ox O2 Delivery O2 Flow Rate FiO2 03/19/19 17:28 173/110 03/19/19 17:00 65 15 173/110 94 Nasal Cannula 2.0 03/19/19 16:00 Nasal Cannula 2.0 03/19/19 16:00 82 03/19/19 16:00 98.5 65 21 173/110 100 Nasal Cannula 2.0 03/19/19 15:23 176/47 03/19/19 15:00 66 16 176/46 91 Nasal Cannula 2.0 03/19/19 14:00 63 17 182/47 100 Nasal Cannula 2.0 03/19/19 13:00 64 17 182/47 100 Nasal Cannula 2.0 03/19/19 12:45 151/53 03/19/19 12:00 Nasal Cannula 2.0 03/19/19 12:00 98.3 63 18 151/53 100 Nasal Cannula 2.0 03/19/19 12:00 82 03/19/19 11:00 65 17 171/43 100 Nasal Cannula 2.0 03/19/19 10:00 66 17 165/92 100 Nasal Cannula 2.0 03/19/19 09:00 63 14 173/43 100 Nasal Cannula 2.0 03/19/19 08:48 166/44 03/19/19 08:00 63 03/19/19 08:00 63 17 166/44 100 Nasal Cannula 2.0 03/19/19 08:00 Nasal Cannula 2.0 03/19/19 08:00 98.1 03/19/19 07:00 59 12 162/44 100 Nasal Cannula 2.0 03/19/19 06:00 61 11 155/39 100 Nasal Cannula 2.0 03/19/19 05:00 58 11 156/40 100 Nasal Cannula 2.0 03/19/19 04:01 Nasal Cannula 2.0 03/19/19 04:00 97.9 62 15 152/39 100 Nasal Cannula 2.0 03/19/19 04:00 62 03/19/19 03:00 60 13 146/43 100 Nasal Cannula 2.0 03/19/19 02:00 60 13 142/33 100 Nasal Cannula 2.0 03/19/19 01:00 60 12 141/32 100 Nasal Cannula 2.0 03/19/19 00:00 98.5 62 14 147/39 100 Nasal Cannula 2.0 03/19/19 00:00 64 03/19/19 00:00 Nasal Cannula 2.0 03/18/19 23:00 68 17 163/47 100 Nasal Cannula 2.0 03/18/19 22:00 64 17 153/42 100 Nasal Cannula 2.0 03/18/19 21:30 160/44 03/18/19 21:00 65 17 161/44 100 Nasal Cannula 2.0 03/18/19 20:00 67 03/18/19 20:00 Nasal Cannula 2.0 03/18/19 20:00 98.7 68 21 153/39 100 Nasal Cannula 2.0 03/18/19 19:00 66 21 156/42 100 Nasal Cannula 2.0 03/18/19 18:00 65 20 146/40 100 Nasal Cannula 2.0 Intake and Output 03/18/19 03/19/19 19:00 07:00 Intake Total 2110 ml 120 ml Output Total 15 ml Balance 2110 ml 105 ml Intake Oral 110 ml 120 ml Hemodialysis 2000 ml Output Urine Total 15 ml # Bowel Movements 2 Height (Feet): 5 Height (Inches): 1.00 Weight (Pounds): 124 General Appearance: no apparent distress, alert EENT: other - poor hear Neck: normal alignment Cardiovascular: normal rate, regular rhythm Respiratory/Chest: lungs clear Abdomen: non tender, soft Extremities: no edema 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
[2019-03-19] MEDS ORDERED: HydrALAZINE 50mg tab ORAL SCH (18:00)
[2019-03-19] MEDS: traMADol 50mg tab ORAL PRN (19:36)
[2019-03-20] VITALS (24 sets, daily range): BP systolic 90–185; BP diastolic 38–106
[2019-03-20] MEDS: HydrALAZINE 50mg tab ORAL SCH ×4 (00:06→18:00)
--- NOTE | 2019-03-20 00:31 | Consultation ---
DATE OF CONSULTATION: 03/18/2019 CARDIOLOGY CONSULTATION CONSULTING PHYSICIAN: Haroon Lou M.D. REASON: Bradycardia and uncontrolled blood pressure. HISTORY OF PRESENT ILLNESS: This is an 88-year-old female. She resides at a [facility] facility. She is on chronic hemodialysis. She has a history of hypertensive heart disease with congestive heart failure due to diastolic dysfunction. She presented to the emergency room yesterday with low blood pressure and heart rate. Her EKG was reviewed by me, reveals episodes of AV dissociation and paroxysmal runs of atrial fibrillation. Since admission, she has responded to medical therapy with dopamine initially and now is having rising blood pressure range. PAST MEDICAL HISTORY: Includes asthma, osteoporosis, end-stage renal disease, hypertensive heart disease, congestive heart failure, type 2 diabetes mellitus, history of DVT, history of cholecystectomy, paroxysmal atrial fibrillation, chronic anemia, anemia due to chronic kidney disease, and sensorineural hearing loss. MEDICATIONS: Prior to admission, reviewed and reconciled. Current MAR reviewed. ALLERGIES: None. FAMILY HISTORY: Noncontributory. SOCIAL HISTORY: Negative for smoking, alcohol, or substance abuse. REVIEW OF SYSTEMS: Otherwise not obtainable from the patient. Pertinent data from prior records and [facility] chart is reviewed. Hospital workup to date has included a 2D echocardiogram performed on 03/16/2019 that revealed a normal ejection fraction, mild aortic stenosis due to degenerative valve disease with aortic insufficiency, mild to moderate tricuspid regurgitation, moderate to severe pulmonary hypertension with PA systolic pressure of 56. Chest x-ray reveals right pleural effusion and pulmonary venous congestion. LABORATORY DATA: White count 5.8, hemoglobin 8.5. Potassium 3.5, BUN 20, creatinine 6.5. Albumin 2.3. Lactic acid is now 1.5 from admission of 2.1. PHYSICAL EXAMINATION: VITAL SIGNS: Blood pressure 153/42, heart rate 64, respiratory rate 17, and afebrile. LUNGS: Diminished breath sounds on the right with few rhonchi. HEART: Irregularly irregular rhythm. Normal S1, S2. A 1/6 systolic murmur at base. ABDOMEN: Soft, nontender. EXTREMITIES: Trace edema. IMPRESSION: 1. Paroxysmal atrial arrhythmias with bradycardia, now resolving. 2. End-stage renal disease. 3. Degenerative aortic valve disease. 4. Hypertensive heart disease with diastolic dysfunction. 5. Pulmonary hypertension. 6. Shock likely due to antihypertensives, now resolved. PLAN: 1. Continue to hold beta-sandro. 2. Off pressors. 3. Stepwise titration of antihypertensives. 4. Follow up thyroid function. 5. Continue cardioembolic prophylaxis with apixaban. 6. Hemodialysis with ultrafiltration for volume management. 7. Reassess chest radiograph. 8. Consider thoracentesis if significant amount of pleural fluid present. Haroon Lou M.D. DR: FORD JOB#: [id number] CC:
--- NOTE | 2019-03-20 05:15 | Progress Note ---
DATE: 03/19/2019 CARDIOLOGY PROGRESS NOTE CRITICAL CARE SUBJECTIVE: The patient remains in the intensive care unit, off beta-sandro with stabilizing heart rates. OBJECTIVE: VITAL SIGNS: Blood pressure 156/40, heart rate 58, respirations 11. Blood pressure up to 202/90. LUNGS: Diminished breath sounds. Few rhonchi. CARDIAC: Irregularly irregular rhythm. Normal S1, S2. A 1/6 systolic murmur at base. ABDOMEN: Soft and nontender. EXTREMITIES: Trace edema. LABORATORY DATA: TSH 3.1. IMPRESSION: 1. Hypotension due to medications, recovered. 2. Bradyarrhythmia due to medications, resolved. 3. Paroxysmal atrial fibrillation and sinus node disease. 4. Pulmonary hypertension. 5. Hypertensive heart disease. 6. Degenerative aortic valve disease. 7. End-stage renal disease. 8. Anemia of chronic kidney disease. 9. History of DVT, on chronic anticoagulation. 10. Episodes of malignant range blood pressure. 11. Possible pleural effusion. PLAN: 1. Titrate antihypertensives. Avoid beta-sandro and drugs that have negative chronotropic potential. 2. Continue full anticoagulation. 3. Recheck laboratory studies. 4. Hemodialysis with ultrafiltration for volume management. 5. Follow up chest radiograph. 6. Trend natriuretic peptide assay. Haroon Lou M.D. DR: JUANPABLO JOB#: [id number] CC:
[2019-03-20] MEDS ORDERED: Heparin Sod 1000 units/ml 10ml IV PRN (06:00)
[2019-03-20 07:02] LABS: EOSINOPHILS % (AUTO) 1.4 % (0.0-3.0); HEMATOCRIT 28.8 % (37.0-47.0); HEMOGLOBIN 9.5 G/DL (12.0-16.0); LYMPHOCYTES % (AUTO) 23.2 % (20.0-45.0); MEAN CORPUSCULAR VOLUME 96 FL (80-99); MONOCYTES % (AUTO) 12.9 % (1.0-10.0); NEUTROPHILS % (AUTO) 61.5 % (45.0-75.0); PLATELET COUNT 137 K/UL (150-450); RED BLOOD COUNT 2.99 M/UL (4.20-5.40); RED CELL DISTRIBUTION WIDTH 16.9 % (11.6-14.8); WHITE BLOOD COUNT 7.7 K/UL (4.8-10.8)
[2019-03-20 07:20] LABS: ALANINE AMINOTRANSFERASE 10 U/L (12-78); ALBUMIN 2.8 G/DL (3.4-5.0); ALBUMIN/GLOBULIN RATIO 0.7 (1.0-2.7); ALKALINE PHOSPHATASE 98 U/L (46-116); ANION GAP 9 mmol/L (5-15); ASPARTATE AMINO TRANSFERASE 16 U/L (15-37); BILIRUBIN,TOTAL 0.7 MG/DL (0.2-1.0); BLOOD UREA NITROGEN 30 mg/dL (7-18); CALCIUM 8.9 MG/DL (8.5-10.1); CARBON DIOXIDE 31 MMOL/L (21-32); CHLORIDE 101 MMOL/L (98-107); CREATININE 6.9 MG/DL (0.55-1.30); POTASSIUM 3.8 MMOL/L (3.5-5.1); SODIUM 141 MMOL/L (136-145)
[2019-03-20] MEDS: Eliquis 2.5mg tablet ORAL SCH ×2 (08:59→18:02)
[2019-03-20] MEDS: Docusate 100mg cap ORAL SCH (08:59)
[2019-03-20] MEDS: Multivitamin w/Minerals tab ORAL SCH (08:59)
--- NOTE | 2019-03-20 10:11 | Diagnostic Imaging Report ---
Indication: Shortness of breath Technique: One view of the chest Comparison: 03/16/2019 Findings: The heart is enlarged. Again demonstrated are bilateral pleural effusions, unchanged. Again demonstrated is bilateral interstitial and airspace edema, unchanged. Impression: Unchanged, over 4 days, findings as above.
[2019-03-20] MEDS ORDERED: NS 275ml ONE (13:49)
--- NOTE | 2019-03-20 15:08 | Nephrology Progress Note ---
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 (6) CHF (congestive heart failure) (7) Malnutrition of moderate degree Plan HR normal, stable on HD next 03/20 Subjective ROS Limited/Unobtainable: Yes Objective Objective Last 24 Hour Vital Signs Date Time Temp Pulse Resp B/P (MAP) Pulse Ox O2 Delivery O2 Flow Rate FiO2 03/20/19 13:00 70 23 159/49 100 Nasal Cannula 2.0 03/20/19 12:00 69 17 154/46 100 Nasal Cannula 2.0 03/20/19 12:00 67 03/20/19 12:00 149/41 03/20/19 11:00 69 16 149/41 100 Nasal Cannula 2.0 03/20/19 10:00 74 19 162/48 99 Nasal Cannula 2.0 03/20/19 09:00 66 12 156/47 100 Nasal Cannula 2.0 03/20/19 09:00 66 154/50 03/20/19 08:00 98.1 03/20/19 08:00 Nasal Cannula 2.0 03/20/19 08:00 71 17 154/50 100 Nasal Cannula 2.0 03/20/19 08:00 68 03/20/19 07:00 73 18 165/49 100 Nasal Cannula 2.0 03/20/19 06:00 65 18 152/45 100 Nasal Cannula 2.0 03/20/19 05:52 159/46 03/20/19 05:00 72 18 159/46 100 Nasal Cannula 2.0 03/20/19 04:00 Nasal Cannula 2.0 03/20/19 04:00 72 03/20/19 04:00 98.0 72 16 150/41 100 Nasal Cannula 2.0 03/20/19 03:00 69 16 164/49 100 Nasal Cannula 2.0 03/20/19 02:00 68 16 164/56 100 Nasal Cannula 2.0 03/20/19 01:25 100 Nasal Cannula 3.0 32 03/20/19 01:00 68 16 165/56 100 Nasal Cannula 2.0 03/20/19 00:06 181/51 03/20/19 00:00 Nasal Cannula 2.0 03/20/19 00:00 68 03/20/19 00:00 97.8 66 18 172/53 100 Nasal Cannula 2.0 03/19/19 23:00 66 16 187/59 100 Nasal Cannula 2.0 03/19/19 22:00 68 20 176/48 100 Nasal Cannula 2.0 03/19/19 21:07 67 202/55 03/19/19 21:00 68 20 198/60 100 Nasal Cannula 2.0 03/19/19 21:00 68 20 180/60 100 Nasal Cannula 2.0 03/19/19 20:00 Nasal Cannula 2.0 03/19/19 20:00 98.0 68 22 202/55 100 Nasal Cannula 2.0 03/19/19 20:00 68 03/19/19 19:00 70 23 168/129 93 Room Air 03/19/19 18:00 71 27 177/48 94 Nasal Cannula 2.0 03/19/19 17:28 173/110 03/19/19 17:00 65 15 173/110 94 Nasal Cannula 2.0 03/19/19 16:00 Nasal Cannula 2.0 03/19/19 16:00 82 03/19/19 16:00 98.5 65 21 173/110 100 Nasal Cannula 2.0 03/19/19 15:23 176/47 Intake and Output 03/19/19 03/20/19 19:00 07:00 Intake Total 300 ml 120 ml Output Total 0 ml Balance 300 ml 120 ml Intake Oral 300 ml 120 ml Output Urine Total 0 ml # Voids 2 Laboratory Tests 03/20/19 06:00: White Blood Count 7.7, Red Blood Count 2.99L, Hemoglobin 9.5L, Hematocrit 28.8L , Mean Corpuscular Volume 96, Mean Corpuscular Hemoglobin 31.6H, Mean Corpuscular Hemoglobin Concent 32.8, Red Cell Distribution Width 16.9H, Platelet Count 137L, Mean Platelet Volume 7.5, Neutrophils (%) (Auto) 61.5, Lymphocytes (%) (Auto) 23.2, Monocytes (%) (Auto) 12.9H, Eosinophils (%) (Auto) 1.4, Basophils (%) (Auto) 1.0, Sodium Level 141, Potassium Level 3.8, Chloride Level 101, Carbon Dioxide Level 31, Anion Gap 9, Blood Urea Nitrogen 30H, Creatinine 6.9H, Estimat Glomerular Filtration Rate 5.6, Glucose Level 115H, Calcium Level 8.9, Magnesium Level 2.1, Total Bilirubin 0.7, Aspartate Amino Transf (AST/SGOT) 16, Alanine Aminotransferase (ALT/SGPT) 10L, Alkaline Phosphatase 98, Pro-B-Type Natriuretic Peptide 01845C, Total Protein 6.7, Albumin 2.8L, Globulin 3.9, Albumin/Globulin Ratio 0.7L, Thyroid Stimulating Hormone (TSH) 3.813H Height (Feet): 5 Height (Inches): 1.00 Weight (Pounds): 122 General Appearance: no apparent distress, thin EENT: normal ENT inspection Neck: normal alignment Cardiovascular: regular rhythm Respiratory/Chest: lungs clear Abdomen: non tender Extremities: no edema 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
[2019-03-20] MEDS: HydrALAZINE 50mg tab ORAL PRN (16:01)
[2019-03-20] MEDS: traMADol 50mg tab ORAL PRN (18:02)
[2019-03-20] MEDS ORDERED: dilTIAZem HCl 25mg/5ml Inj IVP SCH (18:15)
--- NOTE | 2019-03-20 20:35 | General Progress Note ---
Assessment/Plan Problem List: (1) Symptomatic bradycardia ICD Codes: R00.1 - Bradycardia, unspecified SNOMED: 23434372, 559957285 (2) End stage renal disease ICD Codes: N18.6 - End stage renal disease SNOMED: 04480083, 243726440 (3) Hypotension ICD Codes: I95.9 - Hypotension, unspecified SNOMED: 76857273 Status: stable Assessment/Plan: to tele HD per renal titrate bp rx continue to monitor hr cards eval appreciated echo pending dvt/stress ulcer prophylaxis Subjective Time patient seen: 05:45 ROS Limited/Unobtainable: Yes Constitutional: Reports: malaise, weakness HEENT: Reports: no symptoms Cardiovascular: Reports: no symptoms Respiratory: Reports: cough Gastrointestinal/Abdominal: Reports: no symptoms Genitourinary: Reports: no symptoms Neurologic/Psychiatric: Reports: no symptoms Endocrine: Reports: no symptoms Hematologic/Lymphatic: Reports: no symptoms Allergies: Coded Allergies: No Known Allergies (Unverified , 03/16/19) All Systems: reviewed and negative except above Subjective no events. offdopamine. bradycardia better. no fever or chills. bp trending up. on nasal cannula. alert. no distress follows simple commands Objective Last 24 Hour Vital Signs Date Time Temp Pulse Resp B/P (MAP) Pulse Ox O2 Delivery O2 Flow Rate FiO2 03/20/19 20:00 127 03/20/19 19:05 142 145/52 03/20/19 19:02 131 26 145/52 100 Nasal Cannula 2.0 03/20/19 18:00 90/41 03/20/19 18:00 137 90/41 03/20/19 18:00 139 24 90/41 100 Nasal Cannula 2.0 03/20/19 17:00 80 17 120/38 100 Nasal Cannula 2.0 03/20/19 16:01 174/45 03/20/19 16:00 97.5 79 17 185/48 100 Nasal Cannula 2.0 03/20/19 16:00 Nasal Cannula 2.0 03/20/19 16:00 73 03/20/19 15:00 68 17 175/46 100 Nasal Cannula 2.0 03/20/19 14:00 69 19 168/64 100 Nasal Cannula 2.0 03/20/19 13:00 70 23 159/49 100 Nasal Cannula 2.0 03/20/19 12:00 69 17 154/46 100 Nasal Cannula 2.0 03/20/19 12:00 67 03/20/19 12:00 149/41 03/20/19 12:00 Nasal Cannula 2.0 03/20/19 12:00 97.9 03/20/19 11:00 69 16 149/41 100 Nasal Cannula 2.0 03/20/19 10:00 74 19 162/48 99 Nasal Cannula 2.0 03/20/19 09:00 66 12 156/47 100 Nasal Cannula 2.0 03/20/19 09:00 66 154/50 03/20/19 08:00 98.1 03/20/19 08:00 Nasal Cannula 2.0 03/20/19 08:00 71 17 154/50 100 Nasal Cannula 2.0 03/20/19 08:00 68 03/20/19 07:00 73 18 165/49 100 Nasal Cannula 2.0 03/20/19 06:00 65 18 152/45 100 Nasal Cannula 2.0 03/20/19 05:52 159/46 03/20/19 05:00 72 18 159/46 100 Nasal Cannula 2.0 03/20/19 04:00 Nasal Cannula 2.0 03/20/19 04:00 72 03/20/19 04:00 98.0 72 16 150/41 100 Nasal Cannula 2.0 03/20/19 03:00 69 16 164/49 100 Nasal Cannula 2.0 03/20/19 02:00 68 16 164/56 100 Nasal Cannula 2.0 03/20/19 01:25 100 Nasal Cannula 3.0 32 03/20/19 01:00 68 16 165/56 100 Nasal Cannula 2.0 03/20/19 00:06 181/51 03/20/19 00:00 Nasal Cannula 2.0 03/20/19 00:00 68 03/20/19 00:00 97.8 66 18 172/53 100 Nasal Cannula 2.0 03/19/19 23:00 66 16 187/59 100 Nasal Cannula 2.0 03/19/19 22:00 68 20 176/48 100 Nasal Cannula 2.0 03/19/19 21:07 67 202/55 03/19/19 21:00 68 20 198/60 100 Nasal Cannula 2.0 03/19/19 21:00 68 20 180/60 100 Nasal Cannula 2.0 Intake and Output 03/19/19 03/20/19 19:00 07:00 Intake Total 300 ml 120 ml Output Total 0 ml Balance 300 ml 120 ml Intake Oral 300 ml 120 ml Output Urine Total 0 ml # Voids 2 Laboratory Tests 03/20/19 06:00: White Blood Count 7.7, Red Blood Count 2.99L, Hemoglobin 9.5L, Hematocrit 28.8L , Mean Corpuscular Volume 96, Mean Corpuscular Hemoglobin 31.6H, Mean Corpuscular Hemoglobin Concent 32.8, Red Cell Distribution Width 16.9H, Platelet Count 137L, Mean Platelet Volume 7.5, Neutrophils (%) (Auto) 61.5, Lymphocytes (%) (Auto) 23.2, Monocytes (%) (Auto) 12.9H, Eosinophils (%) (Auto) 1.4, Basophils (%) (Auto) 1.0, Sodium Level 141, Potassium Level 3.8, Chloride Level 101, Carbon Dioxide Level 31, Anion Gap 9, Blood Urea Nitrogen 30H, Creatinine 6.9H, Estimat Glomerular Filtration Rate 5.6, Glucose Level 115H, Calcium Level 8.9, Magnesium Level 2.1, Total Bilirubin 0.7, Aspartate Amino Transf (AST/SGOT) 16, Alanine Aminotransferase (ALT/SGPT) 10L, Alkaline Phosphatase 98, Pro-B-Type Natriuretic Peptide 45544D, Total Protein 6.7, Albumin 2.8L, Globulin 3.9, Albumin/Globulin Ratio 0.7L, Thyroid Stimulating Hormone (TSH) 3.813H Height (Feet): 5 Height (Inches): 1.00 Weight (Pounds): 122 Objective General Appearance: WD/WN, no apparent distress Neck: supple Cardiovascular: regular rhythm Respiratory/Chest: lungs clear Abdomen: normal bowel sounds, non tender, soft, no organomegaly Edema: no edema noted Arm (L), no edema noted Arm (R), no edema noted Leg (L), no edema noted Leg (R), no edema noted Pedal (L), no edema noted Pedal (R), no edema noted 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
[2019-03-20] MEDS: Epoetin Alfa-EPBX(ESRD on dialysis)3000 units/ml vial SUBQ SCH (21:09)
[2019-03-20] MEDS: Epoetin Alfa-EPBX(ESRD on dialysis)4000 units/ml vial SUBQ SCH (21:09)
[2019-03-20] MEDS: Metoprolol Succinate XL 25mg tab ORAL SCH (21:57)
[2019-03-21] VITALS (15 sets, daily range): BP systolic 131–196; BP diastolic 45–93
[2019-03-21] MEDS: HydrALAZINE 50mg tab ORAL SCH ×4 (00:22→18:10)
--- NOTE | 2019-03-21 00:30 | Progress Note ---
DATE: 03/20/2019 CARDIOLOGY PROGRESS NOTE SUBJECTIVE: The patient is doing poorly today. She remains in the intensive care unit. She has been short of breath with hypoxia . Hemodialysis with ultrafiltration of 3 liters was completed. Subsequently, the patient developed rapid atrial fibrillation followed by hypotension. Fluid challenge was ordered. The patient subsequently converted to sinus rhythm with stabilized blood pressure range. PHYSICAL EXAMINATION: LUNGS: Diminished breath sounds. Few rales. Jugular venous pressure elevated. CARDIAC: Regular rhythm and rate. Normal S1, S2 with a fourth heart sound. EXTREMITIES: Trace edema. IMPRESSION: 1. Resolved bradycardia. 2. Paroxysmal sinus tachycardia. 3. End-stage renal disease. 4. Acute on chronic diastolic congestive heart failure. 5. Hypertensive heart disease. 6. Recovering shock. 7. Paroxysmal atrial fibrillation. PLAN: 1. Anticoagulation for cardioembolic prophylaxis with apixaban. 2. Titrate antihypertensives. 3. Add beta-sandro. 4. Vitamin supplement and Epogen. 5. Respiratory hygiene. Haroon Lou M.D. DR: DYLON JOB#: [id number] CC: TOSIN
[2019-03-21] MEDS: HydrALAZINE 50mg tab ORAL PRN (03:55)
[2019-03-21 06:34] LABS: BASOPHILS % (AUTO) 0.5 % (0.0-2.0); EOSINOPHILS % (AUTO) 1.1 % (0.0-3.0); HEMOGLOBIN 9.3 G/DL (12.0-16.0); LYMPHOCYTES % (AUTO) 23.6 % (20.0-45.0); MEAN CORPUSCULAR VOLUME 97 FL (80-99); MONOCYTES % (AUTO) 14.7 % (1.0-10.0); NEUTROPHILS % (AUTO) 60.1 % (45.0-75.0); PLATELET COUNT 121 K/UL (150-450); RED BLOOD COUNT 2.88 M/UL (4.20-5.40); RED CELL DISTRIBUTION WIDTH 17.2 % (11.6-14.8); WHITE BLOOD COUNT 8.5 K/UL (4.8-10.8)
[2019-03-21 07:13] LABS: ALANINE AMINOTRANSFERASE 7 U/L (12-78); ALBUMIN 2.7 G/DL (3.4-5.0); ALBUMIN/GLOBULIN RATIO 0.7 (1.0-2.7); ALKALINE PHOSPHATASE 93 U/L (46-116); ANION GAP 8 mmol/L (5-15); ASPARTATE AMINO TRANSFERASE 14 U/L (15-37); BILIRUBIN,TOTAL 0.6 MG/DL (0.2-1.0); BLOOD UREA NITROGEN 21 mg/dL (7-18); CALCIUM 8.7 MG/DL (8.5-10.1); CARBON DIOXIDE 30 MMOL/L (21-32); CHLORIDE 102 MMOL/L (98-107); CREATININE 5.4 MG/DL (0.55-1.30); SODIUM 140 MMOL/L (136-145)
[2019-03-21] MEDS: Multivitamin w/Minerals tab ORAL SCH (09:00)
[2019-03-21] MEDS: Eliquis 2.5mg tablet ORAL SCH ×2 (09:00→18:11)
[2019-03-21] MEDS: Docusate 100mg cap ORAL SCH (09:00)
[2019-03-21] MEDS: Metoprolol Succinate XL 25mg tab ORAL SCH (09:00)
--- NOTE | 2019-03-21 12:35 | Nephrology Progress Note ---
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 (6) CHF (congestive heart failure) (7) Malnutrition of moderate degree (8) Paroxysmal A-fib Plan HR normal, stable on HD next 03/22, PAF cardiol eval Subjective ROS Limited/Unobtainable: Yes Objective Objective Last 24 Hour Vital Signs Date Time Temp Pulse Resp B/P (MAP) Pulse Ox O2 Delivery O2 Flow Rate FiO2 03/21/19 12:00 60 16 148/45 100 Nasal Cannula 2.0 03/21/19 12:00 Nasal Cannula 2.0 03/21/19 11:48 61 03/21/19 11:12 183/54 03/21/19 11:00 65 15 187/53 100 Nasal Cannula 2.0 03/21/19 10:00 63 16 196/56 100 Nasal Cannula 2.0 03/21/19 09:00 64 16 181/64 100 Nasal Cannula 2.0 03/21/19 09:00 69 176/50 03/21/19 09:00 69 176/50 03/21/19 08:00 62 17 179/47 100 Nasal Cannula 2.0 03/21/19 08:00 Nasal Cannula 2.0 03/21/19 08:00 62 03/21/19 07:00 62 20 182/47 100 Nasal Cannula 2.0 03/21/19 06:18 189/58 03/21/19 06:00 65 20 160/48 100 Nasal Cannula 2.0 03/21/19 05:00 66 20 169/48 100 Nasal Cannula 2.0 03/21/19 04:00 65 03/21/19 04:00 Nasal Cannula 2.0 03/21/19 04:00 97.6 67 21 171/48 100 Nasal Cannula 2.0 03/21/19 03:55 183/45 03/21/19 03:00 66 17 183/49 96 Nasal Cannula 2.0 03/21/19 02:00 66 17 155/47 94 Nasal Cannula 2.0 03/21/19 01:00 63 15 175/45 100 Nasal Cannula 2.0 03/21/19 00:22 176/47 03/21/19 00:00 97.2 62 16 176/47 94 Nasal Cannula 2.0 03/21/19 00:00 Nasal Cannula 2.0 03/21/19 00:00 63 03/20/19 23:00 60 16 157/45 94 Nasal Cannula 2.0 03/20/19 23:00 67 18 160/47 100 Nasal Cannula 2.0 03/20/19 22:00 67 18 170/47 100 Nasal Cannula 2.0 03/20/19 21:57 68 149/96 03/20/19 21:00 72 25 148/106 100 Nasal Cannula 2.0 03/20/19 20:00 97.6 81 25 156/64 100 Nasal Cannula 2.0 03/20/19 20:00 127 03/20/19 20:00 Nasal Cannula 2.0 03/20/19 19:05 142 145/52 03/20/19 19:02 131 26 145/52 100 Nasal Cannula 2.0 03/20/19 18:00 90/41 03/20/19 18:00 137 90/41 03/20/19 18:00 139 24 90/41 100 Nasal Cannula 2.0 03/20/19 17:00 80 17 120/38 100 Nasal Cannula 2.0 03/20/19 16:01 174/45 03/20/19 16:00 97.5 79 17 185/48 100 Nasal Cannula 2.0 03/20/19 16:00 Nasal Cannula 2.0 03/20/19 16:00 73 03/20/19 15:00 68 17 175/46 100 Nasal Cannula 2.0 03/20/19 14:00 69 19 168/64 100 Nasal Cannula 2.0 03/20/19 13:00 70 23 159/49 100 Nasal Cannula 2.0 Intake and Output 03/20/19 03/21/19 19:00 07:00 Intake Total 2230 ml 290 ml Output Total 150 ml 0 ml Balance 2080 ml 290 ml Intake Oral 30 ml 290 ml IV Total 200 ml Hemodialysis 2000 ml Output Urine Total 150 ml 0 ml # Voids 1 Laboratory Tests 03/21/19 06:00: White Blood Count 8.5, Red Blood Count 2.88L, Hemoglobin 9.3L, Hematocrit 28.0L , Mean Corpuscular Volume 97, Mean Corpuscular Hemoglobin 32.2H, Mean Corpuscular Hemoglobin Concent 33.2, Red Cell Distribution Width 17.2H, Platelet Count 121L, Mean Platelet Volume 7.2, Neutrophils (%) (Auto) 60.1, Lymphocytes (%) (Auto) 23.6, Monocytes (%) (Auto) 14.7H, Eosinophils (%) (Auto) 1.1, Basophils (%) (Auto) 0.5, Sodium Level 140, Potassium Level 4.0, Chloride Level 102, Carbon Dioxide Level 30, Anion Gap 8, Blood Urea Nitrogen 21H, Creatinine 5.4H, Estimat Glomerular Filtration Rate 7.5, Glucose Level 124H, Calcium Level 8.7, Total Bilirubin 0.6, Aspartate Amino Transf (AST/SGOT) 14L, Alanine Aminotransferase (ALT/SGPT) 7L, Alkaline Phosphatase 93, Total Protein 6.7, Albumin 2.7L, Globulin 4.0, Albumin/Globulin Ratio 0.7L Height (Feet): 5 Height (Inches): 1.00 Weight (Pounds): 119 General Appearance: no apparent distress, thin EENT: normal ENT inspection Neck: normal alignment Cardiovascular: normal rate, regular rhythm Respiratory/Chest: lungs clear Abdomen: non tender, no organomegaly Extremities: no edema 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
[2019-03-21] MEDS ORDERED: Heparin Sod 1000 units/ml 10ml IV PRN (13:00)
[2019-03-21] MEDS ORDERED: traMADol 50mg tab ORAL PRN (13:15)
[2019-03-21] MEDS ORDERED: HydrALAZINE 50mg tab ORAL PRN (13:15)
--- NOTE | 2019-03-21 16:47 | General Progress Note ---
Assessment/Plan Problem List: (1) Symptomatic bradycardia ICD Codes: R00.1 - Bradycardia, unspecified SNOMED: 73834984, 350221852 (2) End stage renal disease ICD Codes: N18.6 - End stage renal disease SNOMED: 77884229, 398516783 (3) Hypotension ICD Codes: I95.9 - Hypotension, unspecified SNOMED: 01097308 Status: stable Assessment/Plan: to tele HD per renal titrate bp rx continue to monitor hr cards eval appreciated echo pending dvt/stress ulcer prophylaxis Subjective ROS Limited/Unobtainable: No Constitutional: Reports: malaise, weakness HEENT: Reports: no symptoms Cardiovascular: Reports: no symptoms Respiratory: Reports: cough, shortness of breath Gastrointestinal/Abdominal: Reports: no symptoms Genitourinary: Reports: no symptoms Neurologic/Psychiatric: Reports: pre-existing deficit Endocrine: Reports: no symptoms Hematologic/Lymphatic: Reports: anemia Allergies: Coded Allergies: No Known Allergies (Unverified , 03/16/19) All Systems: reviewed and negative except above Subjective no events. no more svt. no bradycardia. no fever or chills. bp trending up. on nasal cannula. alert. no distress follows simple commands Objective Last 24 Hour Vital Signs Date Time Temp Pulse Resp B/P (MAP) Pulse Ox O2 Delivery O2 Flow Rate FiO2 03/21/19 12:00 60 16 148/45 100 Nasal Cannula 2.0 03/21/19 12:00 Nasal Cannula 2.0 03/21/19 11:48 61 03/21/19 11:12 183/54 03/21/19 11:00 65 15 187/53 100 Nasal Cannula 2.0 03/21/19 10:00 63 16 196/56 100 Nasal Cannula 2.0 03/21/19 09:00 64 16 181/64 100 Nasal Cannula 2.0 03/21/19 09:00 69 176/50 03/21/19 09:00 69 176/50 03/21/19 08:00 62 17 179/47 100 Nasal Cannula 2.0 03/21/19 08:00 Nasal Cannula 2.0 03/21/19 08:00 62 03/21/19 07:00 62 20 182/47 100 Nasal Cannula 2.0 03/21/19 06:18 189/58 03/21/19 06:00 65 20 160/48 100 Nasal Cannula 2.0 03/21/19 05:00 66 20 169/48 100 Nasal Cannula 2.0 03/21/19 04:00 65 03/21/19 04:00 Nasal Cannula 2.0 03/21/19 04:00 97.6 67 21 171/48 100 Nasal Cannula 2.0 03/21/19 03:55 183/45 03/21/19 03:00 66 17 183/49 96 Nasal Cannula 2.0 03/21/19 02:00 66 17 155/47 94 Nasal Cannula 2.0 03/21/19 01:00 63 15 175/45 100 Nasal Cannula 2.0 03/21/19 00:22 176/47 03/21/19 00:00 97.2 62 16 176/47 94 Nasal Cannula 2.0 03/21/19 00:00 Nasal Cannula 2.0 03/21/19 00:00 63 03/20/19 23:00 60 16 157/45 94 Nasal Cannula 2.0 03/20/19 23:00 67 18 160/47 100 Nasal Cannula 2.0 03/20/19 22:00 67 18 170/47 100 Nasal Cannula 2.0 03/20/19 21:57 68 149/96 03/20/19 21:00 72 25 148/106 100 Nasal Cannula 2.0 03/20/19 20:00 97.6 81 25 156/64 100 Nasal Cannula 2.0 03/20/19 20:00 127 03/20/19 20:00 Nasal Cannula 2.0 03/20/19 19:05 142 145/52 03/20/19 19:02 131 26 145/52 100 Nasal Cannula 2.0 03/20/19 18:00 90/41 03/20/19 18:00 137 90/41 03/20/19 18:00 139 24 90/41 100 Nasal Cannula 2.0 03/20/19 17:00 80 17 120/38 100 Nasal Cannula 2.0 Intake and Output 03/20/19 03/21/19 19:00 07:00 Intake Total 2230 ml 290 ml Output Total 150 ml 0 ml Balance 2080 ml 290 ml Intake Oral 30 ml 290 ml IV Total 200 ml Hemodialysis 2000 ml Output Urine Total 150 ml 0 ml # Voids 1 Laboratory Tests 03/21/19 06:00: White Blood Count 8.5, Red Blood Count 2.88L, Hemoglobin 9.3L, Hematocrit 28.0L , Mean Corpuscular Volume 97, Mean Corpuscular Hemoglobin 32.2H, Mean Corpuscular Hemoglobin Concent 33.2, Red Cell Distribution Width 17.2H, Platelet Count 121L, Mean Platelet Volume 7.2, Neutrophils (%) (Auto) 60.1, Lymphocytes (%) (Auto) 23.6, Monocytes (%) (Auto) 14.7H, Eosinophils (%) (Auto) 1.1, Basophils (%) (Auto) 0.5, Sodium Level 140, Potassium Level 4.0, Chloride Level 102, Carbon Dioxide Level 30, Anion Gap 8, Blood Urea Nitrogen 21H, Creatinine 5.4H, Estimat Glomerular Filtration Rate 7.5, Glucose Level 124H, Calcium Level 8.7, Total Bilirubin 0.6, Aspartate Amino Transf (AST/SGOT) 14L, Alanine Aminotransferase (ALT/SGPT) 7L, Alkaline Phosphatase 93, Total Protein 6.7, Albumin 2.7L, Globulin 4.0, Albumin/Globulin Ratio 0.7L Height (Feet): 5 Height (Inches): 1.00 Weight (Pounds): 119 Objective General Appearance: WD/WN, no apparent distress Neck: supple Cardiovascular: regular rhythm Respiratory/Chest: lungs clear Abdomen: normal bowel sounds, non tender, soft, no organomegaly Edema: no edema noted Arm (L), no edema noted Arm (R), no edema noted Leg (L), no edema noted Leg (R), no edema noted Pedal (L), no edema noted Pedal (R), no edema noted Generalized Neurologic: bone tender II-XII grossly normal, no motor/sensory deficits, abnormal gait , alert, oriented x 3 Edwardo Liu MD Mar 21, 2019 16:47
[2019-03-22] VITALS (10 sets, daily range): BP systolic 112–163; BP diastolic 54–72
--- NOTE | 2019-03-22 01:30 | Progress Note ---
DATE: 03/21/2019 CARDIOLOGY PROGRESS NOTE SUBJECTIVE: Monitored rhythm sinus. No bradycardia. Rare atrial ectopics. No sustained SVT for two days. OBJECTIVE: VITAL SIGNS: Blood pressure 148/45, heart rate 60, respirations 16. LUNGS: Clear. CARDIAC: Regular. Normal S1, S2. ABDOMEN: Soft. EXTREMITIES: Trace edema. Palpable bruit over dialysis fistula. LABORATORY DATA: White count 8.5, hemoglobin 9.3. Potassium 4. Albumin 2.7. IMPRESSION: 1. Resolved bradycardia. 2. Depressed atrial tachyarrhythmias. 3. End-stage renal disease on hemodialysis. 4. Acute on chronic diastolic congestive heart failure, clinically compensated. 5. Paroxysmal atrial fibrillation. 6. Hypertensive heart disease with controlled blood pressure. PLAN: 1. Continue cardioembolic prophylaxis with apixaban. 2. Maintain beta-sandro. 3. Maintain current antihypertensives and titrate further as clinical condition warrants. Haroon Lou M.D. DR: JUANPABLO JOB#: [id number] CC:
[2019-03-22] MEDS ORDERED: Heparin Sod 1000 units/ml 10ml IV PRN (06:00)
[2019-03-22] MEDS: HydrALAZINE 50mg tab ORAL SCH ×5 (06:07→23:21)
[2019-03-22] MEDS: Metoprolol Succinate XL 25mg tab ORAL SCH (09:00)
[2019-03-22] MEDS: Eliquis 2.5mg tablet ORAL SCH ×2 (09:26→17:51)
[2019-03-22] MEDS: Multivitamin w/Minerals tab ORAL SCH (09:26)
[2019-03-22] MEDS: Docusate 100mg cap ORAL SCH (09:26)
--- NOTE | 2019-03-22 13:26 | Nephrology Progress Note ---
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 (6) CHF (congestive heart failure) (7) Malnutrition of moderate degree (8) Paroxysmal A-fib Plan HR normal, stable on HD 03/22, PAF cardiol eval Subjective Constitutional: Reports: weakness HEENT: Reports: no symptoms Genitourinary: Reports: no symptoms Neurologic/Psychiatric: Reports: no symptoms Objective Objective Last 24 Hour Vital Signs Date Time Temp Pulse Resp B/P (MAP) Pulse Ox O2 Delivery O2 Flow Rate FiO2 03/22/19 12:55 130/71 03/22/19 12:00 96.2 78 20 130/71 98 Nasal Cannula 2.0 03/22/19 09:00 70 144/68 03/22/19 09:00 70 144/68 03/22/19 09:00 Nasal Cannula 2.0 03/22/19 08:00 97.4 67 18 135/64 95 2.0 03/22/19 08:00 67 03/22/19 06:07 139/54 03/22/19 04:00 67 03/22/19 04:00 97.2 67 18 131/68 97 2.0 03/22/19 00:00 97.8 64 18 142/72 96 2.0 03/22/19 00:00 64 03/22/19 00:00 147/70 03/21/19 21:00 Nasal Cannula 2.0 03/21/19 20:03 95 Nasal Cannula 2.0 28 03/21/19 20:00 97.5 65 17 131/93 94 2.0 03/21/19 20:00 65 03/21/19 18:10 161/51 03/21/19 18:10 66 161/51 03/21/19 16:00 97.8 66 18 161/51 100 2.0 03/21/19 16:00 63 Intake and Output 03/21/19 03/22/19 19:00 07:00 Intake Total 620 ml Balance 620 ml Intake Oral 620 ml Height (Feet): 5 Height (Inches): 1.00 Weight (Pounds): 113 General Appearance: no apparent distress, alert EENT: normal ENT inspection Neck: normal alignment Cardiovascular: normal rate, regular rhythm Respiratory/Chest: lungs clear Abdomen: non tender Neurologic: supervisor cleaning and annealing II-XII grossly normal Corky Balbuena MD Mar 22, 2019 13:25
--- NOTE | 2019-03-22 14:09 | General Progress Note ---
Assessment/Plan Problem List: (1) Symptomatic bradycardia ICD Codes: R00.1 - Bradycardia, unspecified SNOMED: 31089204, 652224740 (2) End stage renal disease ICD Codes: N18.6 - End stage renal disease SNOMED: 55166888, 427351095 (3) Hypotension ICD Codes: I95.9 - Hypotension, unspecified SNOMED: 88213651 Status: stable Assessment/Plan: tele HD per renal titrate bp rx continue to monitor hr dvt/stress ulcer prophylaxis Subjective ROS Limited/Unobtainable: No Constitutional: Reports: malaise, weakness HEENT: Reports: no symptoms Cardiovascular: Reports: no symptoms Respiratory: Reports: no symptoms Gastrointestinal/Abdominal: Reports: no symptoms Genitourinary: Reports: no symptoms Neurologic/Psychiatric: Reports: no symptoms Endocrine: Reports: no symptoms Hematologic/Lymphatic: Reports: no symptoms Allergies: Coded Allergies: No Known Allergies (Unverified , 03/16/19) All Systems: reviewed and negative except above Subjective no events. no more svt. no bradycardia. HR controlled. no fever or chills. bp trending up. on nasal cannula. alert. no distress follows simple commands Objective Last 24 Hour Vital Signs Date Time Temp Pulse Resp B/P (MAP) Pulse Ox O2 Delivery O2 Flow Rate FiO2 03/22/19 12:55 130/71 03/22/19 12:00 96.2 78 20 130/71 98 Nasal Cannula 2.0 03/22/19 09:00 70 144/68 03/22/19 09:00 70 144/68 03/22/19 09:00 Nasal Cannula 2.0 03/22/19 08:00 97.4 67 18 135/64 95 2.0 03/22/19 08:00 67 03/22/19 06:07 139/54 03/22/19 04:00 67 03/22/19 04:00 97.2 67 18 131/68 97 2.0 03/22/19 00:00 97.8 64 18 142/72 96 2.0 03/22/19 00:00 64 03/22/19 00:00 147/70 03/21/19 21:00 Nasal Cannula 2.0 03/21/19 20:03 95 Nasal Cannula 2.0 28 03/21/19 20:00 97.5 65 17 131/93 94 2.0 03/21/19 20:00 65 03/21/19 18:10 161/51 03/21/19 18:10 66 161/51 03/21/19 16:00 97.8 66 18 161/51 100 2.0 03/21/19 16:00 63 Intake and Output 03/21/19 03/22/19 19:00 07:00 Intake Total 620 ml Balance 620 ml Intake Oral 620 ml Height (Feet): 5 Height (Inches): 1.00 Weight (Pounds): 113 Objective General Appearance: WD/WN, no apparent distress Neck: supple Cardiovascular: regular rhythm Respiratory/Chest: lungs clear Abdomen: normal bowel sounds, non tender, soft, no organomegaly Edema: no edema noted Arm (L), no edema noted Arm (R), no edema noted Leg (L), no edema noted Leg (R), no edema noted Pedal (L), no edema noted Pedal (R), no edema noted Generalized Neurologic: 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
[2019-03-22] MEDS: traMADol 50mg tab ORAL PRN (18:27)
[2019-03-22] MEDS ORDERED: dilTIAZem HCl 50mg/10ml Inj IVP SCH (19:30)
[2019-03-22] MEDS: Epoetin Alfa-EPBX(ESRD on dialysis)3000 units/ml vial SUBQ SCH (21:22)
[2019-03-22] MEDS: Epoetin Alfa-EPBX(ESRD on dialysis)4000 units/ml vial SUBQ SCH (21:22)
[2019-03-23] VITALS: BP 113/71
[2019-03-23 04:00] VITALS: BP 142/50
[2019-03-23] MEDS: HydrALAZINE 50mg tab ORAL SCH ×3 (06:06→17:42)
--- NOTE | 2019-03-23 06:10 | Progress Note ---
DATE: 03/22/2019 CARDIOLOGY PROGRESS NOTE SUBJECTIVE: The patient is in no distress. Alert and responsive, on low flow oxygen by nasal cannula. Monitored rhythm, sinus. No tachyarrhythmias. OBJECTIVE: VITAL SIGNS: Blood pressure 130/71, pulse 78, respirations 20. LUNGS: Bilateral breath sounds. No wheezing. No rales. CARDIAC: Regular rhythm and rate. Normal S1, S2 with a fourth heart sound. ABDOMEN: Soft. EXTREMITIES: Trace edema. LABORATORY DATA: No new laboratories. IMPRESSION: 1. End-stage renal disease. 2. Resolved Bradyarrhythmias. 3. Stable cardiac rhythm. 4. Stable blood pressure parameters. 5. Acute on chronic diastolic congestive heart failure, now compensated. 6. Paroxysmal atrial fibrillation, now in sinus rhythm. PLAN: 1. Dialysis with ultrafiltration. 2. Continue current cardiovascular regimen including beta-sandro. 3. Continue apixaban for cardioembolic prophylaxis. 4. Titrate antihypertensives. 5. Discharge planning. Haroon Lou M.D. DR: JUANPABLO JOB#: [id number] CC:
[2019-03-23 08:00] VITALS: BP 138/59
[2019-03-23] MEDS: Multivitamin w/Minerals tab ORAL SCH (09:23)
[2019-03-23] MEDS: Eliquis 2.5mg tablet ORAL SCH ×2 (09:23→17:42)
[2019-03-23] MEDS: Docusate 100mg cap ORAL SCH (09:23)
[2019-03-23] MEDS: Metoprolol Succinate XL 25mg tab ORAL SCH (09:23)
[2019-03-23 12:00] VITALS: BP 146/64
--- NOTE | 2019-03-23 12:37 | Nephrology Progress Note ---
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 (6) CHF (congestive heart failure) (7) Malnutrition of moderate degree (8) Paroxysmal A-fib Plan HR normal, stable on HD 03/22, cardiol eval Subjective Constitutional: Reports: weakness HEENT: Reports: no symptoms Genitourinary: Reports: no symptoms Neurologic/Psychiatric: Reports: no symptoms Objective Objective Last 24 Hour Vital Signs Date Time Temp Pulse Resp B/P (MAP) Pulse Ox O2 Delivery O2 Flow Rate FiO2 03/23/19 12:18 146/64 03/23/19 09:24 73 138/59 03/23/19 09:23 73 138/59 03/23/19 09:00 Nasal Cannula 2.0 03/23/19 08:00 98.2 73 18 138/59 94 Room Air 03/23/19 08:00 77 03/23/19 06:06 142/50 03/23/19 04:00 66 03/23/19 04:00 98.1 72 18 142/50 94 Room Air 03/23/19 00:00 98.2 03/23/19 00:00 77 03/23/19 00:00 98.2 78 18 113/71 97 Nasal Cannula 2.0 03/22/19 23:22 100.5 78 20 150/54 96 Nasal Cannula 2.0 03/22/19 23:21 150/54 03/22/19 21:00 Nasal Cannula 2.0 03/22/19 20:18 88 149/61 03/22/19 20:04 136 132/57 97 Nasal Cannula 2.0 03/22/19 19:52 130 122/67 03/22/19 19:51 130 122/67 98 Nasal Cannula 2.0 03/22/19 19:30 97.6 130 19 112/66 98 Nasal Cannula 2.0 03/22/19 18:57 96.2 03/22/19 17:51 80 163/68 03/22/19 17:50 163/68 03/22/19 16:00 97.7 80 19 163/68 96 03/22/19 15:35 77 03/22/19 12:55 130/71 Intake and Output 03/22/19 03/23/19 19:00 07:00 # Bowel Movements 1 1 Height (Feet): 5 Height (Inches): 1.00 Weight (Pounds): 114 General Appearance: no apparent distress, alert EENT: normal ENT inspection Neck: normal alignment Cardiovascular: normal rate, regular rhythm Respiratory/Chest: lungs clear Abdomen: non tender, soft Extremities: no edema Neurologic: fern gatherer II-XII grossly normal Corky Balbuena MD Mar 23, 2019 12:37
--- NOTE | 2019-03-23 13:44 | General Progress Note ---
Assessment/Plan Problem List: (1) Symptomatic bradycardia ICD Codes: R00.1 - Bradycardia, unspecified SNOMED: 80860986, 495797635 (2) End stage renal disease ICD Codes: N18.6 - End stage renal disease SNOMED: 22581173, 029728434 (3) Hypotension ICD Codes: I95.9 - Hypotension, unspecified SNOMED: 20337479 Status: stable Assessment/Plan: tele HD per renal titrate bp rx continue to monitor hr dvt/stress ulcer prophylaxis Subjective ROS Limited/Unobtainable: No Constitutional: Reports: malaise, weakness Allergies: Coded Allergies: No Known Allergies (Unverified , 03/16/19) Subjective rapid afib last night. converted to sinus after single dose of iv cardizem. HR controlled. no fever or chills. bp trending up. on nasal cannula. alert. no distress follows simple commands Objective Last 24 Hour Vital Signs Date Time Temp Pulse Resp B/P (MAP) Pulse Ox O2 Delivery O2 Flow Rate FiO2 03/23/19 12:18 146/64 03/23/19 09:24 73 138/59 03/23/19 09:23 73 138/59 03/23/19 09:00 Nasal Cannula 2.0 03/23/19 08:00 98.2 73 18 138/59 94 Room Air 03/23/19 08:00 77 03/23/19 06:06 142/50 03/23/19 04:00 66 03/23/19 04:00 98.1 72 18 142/50 94 Room Air 03/23/19 00:00 98.2 03/23/19 00:00 77 03/23/19 00:00 98.2 78 18 113/71 97 Nasal Cannula 2.0 03/22/19 23:22 100.5 78 20 150/54 96 Nasal Cannula 2.0 03/22/19 23:21 150/54 03/22/19 21:00 Nasal Cannula 2.0 03/22/19 20:18 88 149/61 03/22/19 20:04 136 132/57 97 Nasal Cannula 2.0 03/22/19 19:52 130 122/67 03/22/19 19:51 130 122/67 98 Nasal Cannula 2.0 03/22/19 19:30 97.6 130 19 112/66 98 Nasal Cannula 2.0 03/22/19 18:57 96.2 03/22/19 17:51 80 163/68 03/22/19 17:50 163/68 03/22/19 16:00 97.7 80 19 163/68 96 03/22/19 15:35 77 Intake and Output 03/22/19 03/23/19 19:00 07:00 # Bowel Movements 1 1 Height (Feet): 5 Height (Inches): 1.00 Weight (Pounds): 114 Objective General Appearance: WD/WN, no apparent distress Neck: supple Cardiovascular: regular rhythm Respiratory/Chest: lungs clear Abdomen: normal bowel sounds, non tender, soft, no organomegaly Edema: no edema noted Arm (L), no edema noted Arm (R), no edema noted Leg (L), no edema noted Leg (R), no edema noted Pedal (L), no edema noted Pedal (R), no edema noted Generalized Neurologic: saw maker II-XII grossly normal, no motor/sensory deficits, abnormal gait , alert, oriented x 3 Edwardo Liu MD Mar 23, 2019 13:44
[2019-03-23] MEDS ORDERED: D5NS 1000ml IV ONE (15:24)
[2019-03-23 16:00] VITALS: BP 137/54
[2019-03-23 20:00] VITALS: BP 129/57
[2019-03-23] MEDS: traMADol 50mg tab ORAL PRN (20:28)
--- NOTE | 2019-03-23 23:00 | Progress Note ---
DATE: 03/23/2019 CARDIOLOGY PROGRESS NOTE SUBJECTIVE: The patient is in no distress. Following simple commands. Remains on nasal cannula with adequate oxygen saturations, 94% on room air. Rapid atrial fibrillation was noted yesterday and the patient converted with a single dose of IV Cardizem. PHYSICAL EXAMINATION: LUNGS: Bilateral breath sounds. CARDIAC: Regular rhythm and rate. Normal S1 and S2. A 1/6 systolic murmur at lower left sternal border. ABDOMEN: Soft. EXTREMITIES: Trace edema. IMPRESSION: 1. Paroxysmal atrial fibrillation. 2. End-stage renal disease. 3. Sinus node disease. 4. Resolved bradycardia. 5. Anemia of chronic kidney disease. 6. Acute on chronic diastolic congestive heart failure. 7. Hypertensive heart disease with labile blood pressure. PLAN: 1. Hemodialysis with ultrafiltration for volume management. 2. Advance beta-sandro for suppression of atrial arrhythmias. 3. Titrate antihypertensives based on clinical parameters. 4. We will follow. 5. May need to consider amiodarone should there be recurring episodes of atrial fibrillation. Haroon Lou M.D. DR: Andres JOB#: [id number] CC:
[2019-03-24] VITALS: BP 145/66
[2019-03-24] MEDS: HydrALAZINE 50mg tab ORAL SCH ×4 (00:46→16:52)
[2019-03-24 04:00] VITALS: BP 138/52
[2019-03-24 08:00] VITALS: BP 138/51
[2019-03-24 08:07] LABS: BASOPHILS % (AUTO) 0.7 % (0.0-2.0); EOSINOPHILS % (AUTO) 2.4 % (0.0-3.0); HEMATOCRIT 27.6 % (37.0-47.0); HEMOGLOBIN 9.2 G/DL (12.0-16.0); LYMPHOCYTES % (AUTO) 29.6 % (20.0-45.0); MEAN CORPUSCULAR VOLUME 96 FL (80-99); MONOCYTES % (AUTO) 12.1 % (1.0-10.0); NEUTROPHILS % (AUTO) 55.1 % (45.0-75.0); PLATELET COUNT 122 K/UL (150-450); RED BLOOD COUNT 2.88 M/UL (4.20-5.40); RED CELL DISTRIBUTION WIDTH 16.5 % (11.6-14.8); WHITE BLOOD COUNT 8.5 K/UL (4.8-10.8)
[2019-03-24] MEDS: Multivitamin w/Minerals tab ORAL SCH (08:24)
[2019-03-24] MEDS: Docusate 100mg cap ORAL SCH (08:25)
[2019-03-24] MEDS: Eliquis 2.5mg tablet ORAL SCH ×2 (08:25→16:52)
[2019-03-24] MEDS: Metoprolol Succinate XL 50mg tab ORAL SCH (08:26)
[2019-03-24] MEDS: traMADol 50mg tab ORAL PRN ×2 (08:28→18:39)
[2019-03-24 08:45] LABS: ALANINE AMINOTRANSFERASE 9 U/L (12-78); ALBUMIN 2.6 G/DL (3.4-5.0); ALBUMIN/GLOBULIN RATIO 0.6 (1.0-2.7); ALKALINE PHOSPHATASE 85 U/L (46-116); ANION GAP 11 mmol/L (5-15); ASPARTATE AMINO TRANSFERASE 15 U/L (15-37); BILIRUBIN,TOTAL 0.7 MG/DL (0.2-1.0); BLOOD UREA NITROGEN 37 mg/dL (7-18); CALCIUM 8.7 MG/DL (8.5-10.1); CARBON DIOXIDE 28 MMOL/L (21-32); CHLORIDE 99 MMOL/L (98-107); CREATININE 7.1 MG/DL (0.55-1.30); POTASSIUM 4.1 MMOL/L (3.5-5.1); SODIUM 138 MMOL/L (136-145)
[2019-03-24] MEDS ORDERED: NS 275ml ONE (10:30)
[2019-03-24 12:00] VITALS: BP 130/62
--- NOTE | 2019-03-24 12:44 | Nephrology Progress Note ---
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 (6) CHF (congestive heart failure) (7) Malnutrition of moderate degree (8) Paroxysmal A-fib Plan HR normal, stable on HD 03/22, PAF cardiol eval hd 03/25 Subjective ROS Limited/Unobtainable: Yes Objective Objective Last 24 Hour Vital Signs Date Time Temp Pulse Resp B/P (MAP) Pulse Ox O2 Delivery O2 Flow Rate FiO2 03/24/19 12:00 97.8 70 18 130/62 (84) 95 03/24/19 09:39 96 Nasal Cannula 2.0 28 03/24/19 09:00 Nasal Cannula 2.0 03/24/19 08:26 67 03/24/19 08:25 67 138/51 03/24/19 08:00 67 03/24/19 08:00 98.1 67 18 138/51 (80) 93 03/24/19 06:00 138/52 03/24/19 05:05 65 03/24/19 04:00 99.4 66 18 138/52 (80) 93 03/24/19 00:46 145/66 03/24/19 00:00 68 03/24/19 00:00 97.4 70 18 145/66 (92) 94 03/23/19 21:00 Nasal Cannula 2.0 03/23/19 20:00 98.6 71 18 129/57 (81) 92 03/23/19 20:00 73 03/23/19 17:42 137/54 03/23/19 17:42 65 137/54 03/23/19 16:00 63 03/23/19 16:00 98.2 65 18 137/54 98 Room Air Intake and Output 03/23/19 03/24/19 19:00 07:00 # Voids 2 # Bowel Movements 1 1 Laboratory Tests 03/24/19 06:35: White Blood Count 8.5, Red Blood Count 2.88L, Hemoglobin 9.2L, Hematocrit 27.6L , Mean Corpuscular Volume 96, Mean Corpuscular Hemoglobin 32.1H, Mean Corpuscular Hemoglobin Concent 33.6, Red Cell Distribution Width 16.5H, Platelet Count 122L, Mean Platelet Volume 7.0, Neutrophils (%) (Auto) 55.1, Lymphocytes (%) (Auto) 29.6, Monocytes (%) (Auto) 12.1H, Eosinophils (%) (Auto) 2.4, Basophils (%) (Auto) 0.7, Sodium Level 138, Potassium Level 4.1, Chloride Level 99, Carbon Dioxide Level 28, Anion Gap 11, Blood Urea Nitrogen 37H, Creatinine 7.1H, Estimat Glomerular Filtration Rate 5.5, Glucose Level 127H, Calcium Level 8.7, Magnesium Level 2.4, Total Bilirubin 0.7, Aspartate Amino Transf (AST/SGOT) 15, Alanine Aminotransferase (ALT/SGPT) 9L, Alkaline Phosphatase 85, Pro-B-Type Natriuretic Peptide 72584F, Total Protein 6.7, Albumin 2.6L, Globulin 4.1, Albumin/Globulin Ratio 0.6L Height (Feet): 5 Height (Inches): 1.00 Weight (Pounds): 114 General Appearance: no apparent distress, alert EENT: normal ENT inspection Neck: normal alignment Cardiovascular: normal rate, regular rhythm Respiratory/Chest: lungs clear Abdomen: non tender, soft Extremities: no edema 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
[2019-03-24] MEDS ORDERED: Heparin Sod 1000 units/ml 10ml IV PRN (13:00)
[2019-03-24 16:00] VITALS: BP 139/55
[2019-03-24 20:00] VITALS: BP 145/53
[2019-03-24 20:38] LABS: BASOPHILS % (AUTO) 0.5 % (0.0-2.0); EOSINOPHILS % (AUTO) 0.6 % (0.0-3.0); HEMATOCRIT 29.1 % (37.0-47.0); HEMOGLOBIN 9.7 G/DL (12.0-16.0); LYMPHOCYTES % (AUTO) 14.5 % (20.0-45.0); MEAN CORPUSCULAR VOLUME 95 FL (80-99); MONOCYTES % (AUTO) 10.3 % (1.0-10.0); NEUTROPHILS % (AUTO) 74.1 % (45.0-75.0); PLATELET COUNT 118 K/UL (150-450); RED BLOOD COUNT 3.06 M/UL (4.20-5.40); RED CELL DISTRIBUTION WIDTH 16.4 % (11.6-14.8); WHITE BLOOD COUNT 9.9 K/UL (4.8-10.8)
--- NOTE | 2019-03-24 20:57 | General Progress Note ---
Assessment/Plan Problem List: (1) Symptomatic bradycardia ICD Codes: R00.1 - Bradycardia, unspecified SNOMED: 01461399, 268883608 (2) End stage renal disease ICD Codes: N18.6 - End stage renal disease SNOMED: 61821964, 382458837 (3) Hypotension ICD Codes: I95.9 - Hypotension, unspecified SNOMED: 70786063 Status: stable Assessment/Plan: tele HD per renal titrate bp rx continue to monitor hr dvt/stress ulcer prophylaxis Subjective ROS Limited/Unobtainable: No Constitutional: Reports: malaise, weakness HEENT: Reports: no symptoms Cardiovascular: Reports: no symptoms Respiratory: Reports: cough Gastrointestinal/Abdominal: Reports: no symptoms Genitourinary: Reports: no symptoms Neurologic/Psychiatric: Reports: no symptoms Endocrine: Reports: no symptoms Hematologic/Lymphatic: Reports: no symptoms Allergies: Coded Allergies: No Known Allergies (Unverified , 03/16/19) All Systems: reviewed and negative except above Subjective HR controlled. no fever or chills. bp trending up. on nasal cannula. alert. no distress follows simple commands Objective Last 24 Hour Vital Signs Date Time Temp Pulse Resp B/P (MAP) Pulse Ox O2 Delivery O2 Flow Rate FiO2 03/24/19 18:45 101.8 03/24/19 18:15 100.4 03/24/19 18:10 100.4 03/24/19 17:40 100.4 03/24/19 16:52 139/55 03/24/19 16:52 69 139/55 03/24/19 16:00 70 03/24/19 16:00 98.1 69 19 139/55 (83) 94 03/24/19 12:49 130/62 03/24/19 12:00 65 03/24/19 12:00 97.8 70 18 130/62 (84) 95 03/24/19 09:39 96 Nasal Cannula 2.0 28 03/24/19 09:00 Nasal Cannula 2.0 03/24/19 08:26 67 03/24/19 08:25 67 138/51 03/24/19 08:00 67 03/24/19 08:00 98.1 67 18 138/51 (80) 93 03/24/19 06:00 138/52 03/24/19 05:05 65 03/24/19 04:00 99.4 66 18 138/52 (80) 93 03/24/19 00:46 145/66 03/24/19 00:00 68 03/24/19 00:00 97.4 70 18 145/66 (92) 94 03/23/19 21:00 Nasal Cannula 2.0 Intake and Output 03/23/19 03/24/19 19:00 07:00 # Voids 2 # Bowel Movements 1 1 Laboratory Tests 03/24/19 06:35: White Blood Count 8.5, Red Blood Count 2.88L, Hemoglobin 9.2L, Hematocrit 27.6L , Mean Corpuscular Volume 96, Mean Corpuscular Hemoglobin 32.1H, Mean Corpuscular Hemoglobin Concent 33.6, Red Cell Distribution Width 16.5H, Platelet Count 122L, Mean Platelet Volume 7.0, Neutrophils (%) (Auto) 55.1, Lymphocytes (%) (Auto) 29.6, Monocytes (%) (Auto) 12.1H, Eosinophils (%) (Auto) 2.4, Basophils (%) (Auto) 0.7, Sodium Level 138, Potassium Level 4.1, Chloride Level 99, Carbon Dioxide Level 28, Anion Gap 11, Blood Urea Nitrogen 37H, Creatinine 7.1H, Estimat Glomerular Filtration Rate 5.5, Glucose Level 127H, Calcium Level 8.7, Magnesium Level 2.4, Total Bilirubin 0.7, Aspartate Amino Transf (AST/SGOT) 15, Alanine Aminotransferase (ALT/SGPT) 9L, Alkaline Phosphatase 85, Pro-B-Type Natriuretic Peptide 52888F, Total Protein 6.7, Albumin 2.6L, Globulin 4.1, Albumin/Globulin Ratio 0.6L 03/24/19 20:14: White Blood Count 9.9, Red Blood Count 3.06L, Hemoglobin 9.7L, Hematocrit 29.1L , Mean Corpuscular Volume 95, Mean Corpuscular Hemoglobin 31.6H, Mean Corpuscular Hemoglobin Concent 33.2, Red Cell Distribution Width 16.4H, Platelet Count 118L, Mean Platelet Volume 6.9, Neutrophils (%) (Auto) 74.1, Lymphocytes (%) (Auto) 14.5L, Monocytes (%) (Auto) 10.3H, Eosinophils (%) (Auto ) 0.6, Basophils (%) (Auto) 0.5 Height (Feet): 5 Height (Inches): 1.00 Weight (Pounds): 114 Objective General Appearance: WD/WN, no apparent distress Neck: supple Cardiovascular: regular rhythm Respiratory/Chest: lungs clear Abdomen: normal bowel sounds, non tender, soft, no organomegaly Edema: no edema noted Arm (L), no edema noted Arm (R), no edema noted Leg (L), no edema noted Leg (R), no edema noted Pedal (L), no edema noted Pedal (R), no edema noted Generalized Neurologic: millwright helper II-XII grossly normal, no motor/sensory deficits, abnormal gait , alert, oriented x 3 Edwardo Liu MD Mar 24, 2019 20:57
[2019-03-24] MEDS ORDERED: Piperacillin/Tazobactam 3.375 GM in NS 110 ML IVPB SCH (22:00)
--- NOTE | 2019-03-24 22:01 | Progress Note ---
DATE: 03/24/2019 CARDIOLOGY PROGRESS NOTE SUBJECTIVE: The patient's blood pressure parameters remained stable. She is having fever spikes this afternoon up to 101.8. No nausea or vomiting. No cough or shortness of breath. No abdominal pain or diarrhea. PHYSICAL EXAMINATION: VITAL SIGNS: Blood pressure 139/55, pulse 69, respirations 19. LUNGS: Bilateral breath sounds. No wheezing. CARDIAC: Regular rhythm and rate. Normal S1 and S2 with a fourth heart sound. ABDOMEN: Soft. EXTREMITIES: No edema. LABORATORY DATA: White count 9.9, hemoglobin 9.7. Sodium 138, potassium 4.1, bicarb 28, BUN 37, and creatinine 7.1. Pro-natriuretic peptide 27,800. Albumin 2.6. IMPRESSION: 1. New-onset fevers raises concern over an acute infection and sepsis. 2. End-stage renal disease. 3. Sinus node disease with acute on chronic diastolic congestive heart failure. PLAN: 1. Re-culture. 2. Empiric antimicrobials 3. Continue current cardiovascular regimen. 4. Protein supplement. Haroon Lou M.D. DR: DYLON JOB#: [id number] CC:
[2019-03-24] MEDS: Zosyn 2.25 gm in D5W 55ml IV SCH (22:32)
[2019-03-24] MEDS ORDERED: Vancomycin 1gm/D5W 275ml IVPB ONE ×2 (23:00)
[2019-03-25] VITALS: BP 152/55
[2019-03-25] MEDS: HydrALAZINE 50mg tab ORAL SCH ×4 (00:31→18:08)
[2019-03-25 04:00] VITALS: BP 143/56
[2019-03-25] MEDS: Zosyn 2.25 gm in D5W 55ml IV SCH ×3 (05:54→23:53)
[2019-03-25 08:00] VITALS: BP 132/47
[2019-03-25] MEDS: Metoprolol Succinate XL 50mg tab ORAL SCH (09:00)
[2019-03-25] MEDS: Multivitamin w/Minerals tab ORAL SCH (09:15)
[2019-03-25] MEDS: Docusate 100mg cap ORAL SCH (09:15)
[2019-03-25] MEDS: Eliquis 2.5mg tablet ORAL SCH ×2 (09:16→09:20)
[2019-03-25 12:00] VITALS: BP 131/48
[2019-03-25] MEDS: traMADol 50mg tab ORAL PRN (14:30)
[2019-03-25 16:00] VITALS: BP 143/59
--- NOTE | 2019-03-25 17:15 | Consultation ---
DATE OF CONSULTATION: 03/25/2019 INFECTIOUS DISEASES CONSULTATION CONSULTING PHYSICIAN: Rm Coughlin M.D. REFERRING PHYSICIAN: Haroon Lou M.D. REASON FOR CONSULTATION: Fever. HISTORY OF PRESENTING ILLNESS: This is an 88-year-old lady with history of hypertension, congestive heart failure, diabetes, renal failure, on dialysis, who came in to the emergency room because she was hypotensive and bradycardic. She was started on dopamine. She was also found to have fevers and an Infectious Diseases consultation has been obtained for antibiotics. PAST MEDICAL HISTORY: 1. History of diabetes. 2. Hypertension. 3. Congestive heart failure. 4. Renal failure, on dialysis. 5. Atrial fibrillation. 6. Asthma. 7. Osteoporosis. 8. History of DVT. 9. History of cholecystectomy. SOCIAL HISTORY: No history of smoking, alcohol, or drug use. FAMILY HISTORY: Unknown. REVIEW OF SYSTEMS: Unable to obtain currently. MEDICATIONS: As an inpatient, she is on IV vancomycin and Zosyn, subcu heparin, metoprolol, Epogen, tramadol, docusate, folic acid, multivitamin, Lipitor, Norvasc, Eliquis, hydralazine, Restoril, and Tylenol. ALLERGIES: No known drug allergies. PHYSICAL EXAMINATION: VITAL SIGNS: Temperature of 97.9, T-max of 102.1, pulse of 73, respiratory rate 20, blood pressure 132/47, and O2 saturation of 100%. HEENT: Pupils equally reactive to light and accommodation. Mouth appears clean without thrush. NECK: Supple. No adenopathy. No JVD. CARDIOVASCULAR: Regular rate and rhythm. No murmurs. LUNGS: Clear to auscultation bilaterally. No crackles. No wheezes. ABDOMEN: Soft, nontender. No organomegaly. EXTREMITIES: No cyanosis. No clubbing. No edema. LABORATORY AND DIAGNOSTIC DATA: White count 9.9, hemoglobin 9.7, hematocrit 29.1, MCV 95, platelet count 118,000 with neutrophils of 74%. Sodium 138, potassium 4.1, chloride 99, bicarb 28, BUN 37, creatinine 7.1, glucose 127, calcium 8.7. Total bilirubin 0.7, AST 15, ALT 9, alkaline phosphatase 85. Beta-natriuretic peptide 27,856. Total protein 6.7, albumin 2.6. UA is showing 2-4 white cells. Hepatitis B surface antigen is negative. Rectal swab was negative for VRE. Nasal swab was negative for MRSA. 03/16/2019, blood cultures are negative. Chest x-ray on 03/20/2019, showing bilateral pleural effusions, interstitial and airspace edema noted. ASSESSMENT: This is an 88-year-old lady with history of diabetes, hypertension, renal failure, on dialysis, who comes in with cough and shortness of breath and is found to have fevers, which could be secondary to: 1. Pneumonia. 2. We would like to rule out sepsis as a possibility. 3. Diabetes. 4. Renal failure, on dialysis. 5. Hypertension. PLAN: 1. Continue IV vancomycin and Zosyn. 2. We will order blood cultures. 3. We will order sputum for Gram stain and culture. 4. We will follow up cultures and adjust antibiotics accordingly. I would like to thank, Dr. Lou, for this consultation. Rm Coughlin M.D. DR: Jose JOB#: [id number] CC: Haroon Lou M.D. [facility]
--- NOTE | 2019-03-25 17:42 | Nephrology Progress Note ---
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 (6) CHF (congestive heart failure) (7) Malnutrition of moderate degree (8) Paroxysmal A-fib Plan HR normal, stable on HD 03/25, UF -2800 PAF cardiol eval Tmax 101.1 recultured cxr Subjective ROS Limited/Unobtainable: Yes Objective Objective Last 24 Hour Vital Signs Date Time Temp Pulse Resp B/P (MAP) Pulse Ox O2 Delivery O2 Flow Rate FiO2 03/25/19 12:00 67 03/25/19 12:00 97.9 68 20 131/48 (75) 98 03/25/19 09:00 Nasal Cannula 2.0 03/25/19 08:00 73 03/25/19 08:00 97.9 73 20 132/47 (75) 100 03/25/19 05:55 143/56 03/25/19 04:00 97.7 78 15 143/56 (85) 94 03/25/19 04:00 69 03/25/19 01:07 101.1 03/25/19 00:31 152/55 03/25/19 00:00 85 03/25/19 00:00 102.1 88 16 152/55 (87) 94 03/24/19 21:00 Nasal Cannula 2.0 03/24/19 20:00 99.7 75 16 145/53 (83) 92 03/24/19 20:00 74 03/24/19 18:45 101.8 03/24/19 18:10 100.4 Intake and Output 03/24/19 03/25/19 19:00 07:00 Intake Total 625 ml Balance 625 ml Intake Oral 240 ml IV Total 385 ml # Bowel Movements 1 Laboratory Tests 03/24/19 20:14: White Blood Count 9.9, Red Blood Count 3.06L, Hemoglobin 9.7L, Hematocrit 29.1L , Mean Corpuscular Volume 95, Mean Corpuscular Hemoglobin 31.6H, Mean Corpuscular Hemoglobin Concent 33.2, Red Cell Distribution Width 16.4H, Platelet Count 118L, Mean Platelet Volume 6.9, Neutrophils (%) (Auto) 74.1, Lymphocytes (%) (Auto) 14.5L, Monocytes (%) (Auto) 10.3H, Eosinophils (%) (Auto ) 0.6, Basophils (%) (Auto) 0.5 Height (Feet): 5 Height (Inches): 1.00 Weight (Pounds): 120 General Appearance: thin EENT: normal ENT inspection Neck: normal alignment, supple Cardiovascular: regular rhythm Respiratory/Chest: lungs clear Abdomen: non tender, soft Extremities: no edema 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
[2019-03-25 20:00] VITALS: BP 142/52
[2019-03-25] MEDS: Epoetin Alfa-EPBX(ESRD on dialysis)4000 units/ml vial SUBQ SCH (21:54)
[2019-03-25] MEDS: Epoetin Alfa-EPBX(ESRD on dialysis)3000 units/ml vial SUBQ SCH (21:54)
[2019-03-25] MEDS ORDERED: Vancomycin 1gm in D5W 275ml IVPB SCH (22:00)
[2019-03-26] VITALS: BP 114/54
--- NOTE | 2019-03-26 02:45 | Progress Note ---
DATE: 03/25/2019 CARDIOLOGY PROGRESS NOTE SUBJECTIVE: The patient had fever spikes last evening. She was pancultured and started on broad-spectrum antibiotics. She has defervesced. OBJECTIVE: VITAL SIGNS: Blood pressure 131/48, heart rate 68, respiratory rate 20, and afebrile. LUNGS: Diminished breath sounds. Few rhonchi. CARDIAC: Regular rhythm and rate. Normal S1, S2. A 1/6 systolic murmur at apex. ABDOMEN: Soft, nontender. EXTREMITIES: Trace edema. IMPRESSION: 1. Probable sepsis, a new infection, rule out pneumonia. 2. End-stage renal disease. 3. Paroxysmal atrial fibrillation. 4. Hypertensive heart disease. 5. Type 2 diabetes mellitus. PLAN: 1. Continue empiric antimicrobials. 2. Check chest x-ray. 3. Await cultures of the blood and sputum. 4. Respiratory hygiene. 5. Hemodialysis with ultrafiltration. 6. Titrate antihypertensive regimen. Haroon Lou M.D. DR: FORD JOB#: [id number] CC:
[2019-03-26 04:00] VITALS: BP_SYST 115; BP_SYST 134; BP_DIAS 53; BP_DIAS 78
[2019-03-26] MEDS: HydrALAZINE 50mg tab ORAL SCH ×4 (05:31→17:20)
[2019-03-26] MEDS: Zosyn 2.25 gm in D5W 55ml IV SCH ×3 (05:48→21:45)
[2019-03-26 07:39] LABS: BASOPHILS % (AUTO) 0.9 % (0.0-2.0); EOSINOPHILS % (AUTO) 4.5 % (0.0-3.0); HEMATOCRIT 27.3 % (37.0-47.0); LYMPHOCYTES % (AUTO) 22.5 % (20.0-45.0); MEAN CORPUSCULAR VOLUME 96 FL (80-99); MONOCYTES % (AUTO) 14.3 % (1.0-10.0); NEUTROPHILS % (AUTO) 57.8 % (45.0-75.0); PLATELET COUNT 126 K/UL (150-450); RED BLOOD COUNT 2.84 M/UL (4.20-5.40); RED CELL DISTRIBUTION WIDTH 16.1 % (11.6-14.8); WHITE BLOOD COUNT 7.7 K/UL (4.8-10.8)
[2019-03-26 08:00] VITALS: BP 126/42
[2019-03-26 08:08] LABS: ALANINE AMINOTRANSFERASE 82 U/L (12-78); ALBUMIN 2.4 G/DL (3.4-5.0); ALBUMIN/GLOBULIN RATIO 0.6 (1.0-2.7); ALKALINE PHOSPHATASE 198 U/L (46-116); ANION GAP 9 mmol/L (5-15); ASPARTATE AMINO TRANSFERASE 68 U/L (15-37); BILIRUBIN,TOTAL 0.5 MG/DL (0.2-1.0); BLOOD UREA NITROGEN 34 mg/dL (7-18); CALCIUM 8.5 MG/DL (8.5-10.1); CARBON DIOXIDE 30 MMOL/L (21-32); CHLORIDE 101 MMOL/L (98-107); CREATININE 6.4 MG/DL (0.55-1.30); POTASSIUM 4.1 MMOL/L (3.5-5.1); SODIUM 140 MMOL/L (136-145)
[2019-03-26] MEDS: Multivitamin w/Minerals tab ORAL SCH (09:58)
[2019-03-26] MEDS: Docusate 100mg cap ORAL SCH (09:58)
[2019-03-26] MEDS: Eliquis 2.5mg tablet ORAL SCH ×2 (09:58→17:20)
[2019-03-26] MEDS: Metoprolol Succinate XL 50mg tab ORAL SCH (09:59)
--- NOTE | 2019-03-26 10:42 | Diagnostic Imaging Report ---
Indication: Shortness of breath, cough Technique: One view of the chest Comparison: 03/20/2019 Findings: Bilateral interstitial and airspace infiltrates versus edema, bilateral pleural effusions persists. There may be slightly decreased left pleural fluid, other findings are unchanged. The heart remains borderline enlarged. Left axillary venous stents again demonstrated. Impression: Slightly decreased left pleural fluid. 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
--- NOTE | 2019-03-26 10:46 | Infectious Diseases Prog Note ---
Assessment/Plan Assessment/Plan antibiotics : vancomycin iv, zosyn A 1. pneumonia 2. diabetes mellitus 3. hypertension 4. renal failure on HD P 1. continue iv vancomycin, zosyn 2. will follow up cultures Subjective ROS Limited/Unobtainable: Yes Allergies: Coded Allergies: No Known Allergies (Unverified , 03/16/19) Objective Vital Signs Last 24 Hour Vital Signs Date Time Temp Pulse Resp B/P (MAP) Pulse Ox O2 Delivery O2 Flow Rate FiO2 03/26/19 09:59 74 126/42 03/26/19 09:58 74 126/42 03/26/19 08:00 97.2 74 20 126/42 (70) 99 03/26/19 05:31 118/57 03/26/19 04:00 62 03/26/19 04:00 97.8 63 18 134/53 (80) 96 03/26/19 00:00 114/54 03/26/19 00:00 74 03/26/19 00:00 97.6 72 18 114/54 (74) 95 03/25/19 21:00 Nasal Cannula 2.0 03/25/19 20:00 98.9 76 20 142/52 (82) 98 03/25/19 20:00 78 03/25/19 18:08 143/59 03/25/19 18:08 80 143/59 03/25/19 16:00 80 03/25/19 16:00 97.7 80 20 143/59 (87) 92 03/25/19 12:00 67 03/25/19 12:00 97.9 68 20 131/48 (75) 98 Height (Feet): 5 Height (Inches): 1.00 Weight (Pounds): 112 Respiratory/Chest: lungs clear Cardiovascular: normal rate, regular rhythm, no gallop/murmur Abdomen: soft, non tender Extremities: no edema Microbiology Date/Time Source Procedure Growth Status 03/24/19 20:14 Blood Blood Culture - Preliminary NO GROWTH AFTER 24 HOURS Resulted 03/24/19 20:10 Blood Blood Culture - Preliminary NO GROWTH AFTER 24 HOURS Resulted Laboratory Tests Test 03/25/19 18:00 03/26/19 06:01 Random Vancomycin Level 13.7 ug/mL White Blood Count 7.7 K/UL (4.8-10.8) Red Blood Count 2.84 M/UL (4.20-5.40) L Hemoglobin 9.0 G/DL (12.0-16.0) L Hematocrit 27.3 % (37.0-47.0) L Mean Corpuscular Volume 96 FL (80-99) Mean Corpuscular Hemoglobin 31.7 PG (27.0-31.0) H Mean Corpuscular Hemoglobin Concent 33.0 G/DL (32.0-36.0) Red Cell Distribution Width 16.1 % (11.6-14.8) H Platelet Count 126 K/UL (150-450) L Mean Platelet Volume 7.4 FL (6.5-10.1) Neutrophils (%) (Auto) 57.8 % (45.0-75.0) Lymphocytes (%) (Auto) 22.5 % (20.0-45.0) Monocytes (%) (Auto) 14.3 % (1.0-10.0) H Eosinophils (%) (Auto) 4.5 % (0.0-3.0) H Basophils (%) (Auto) 0.9 % (0.0-2.0) Sodium Level 140 MMOL/L (136-145) Potassium Level 4.1 MMOL/L (3.5-5.1) Chloride Level 101 MMOL/L (98-107) Carbon Dioxide Level 30 MMOL/L (21-32) Anion Gap 9 mmol/L (5-15) Blood Urea Nitrogen 34 mg/dL (7-18) H Creatinine 6.4 MG/DL (0.55-1.30) H Estimat Glomerular Filtration Rate 6.2 mL/min (>60) Glucose Level 133 MG/DL (74-106) H Calcium Level 8.5 MG/DL (8.5-10.1) Magnesium Level 2.5 MG/DL (1.8-2.4) H Total Bilirubin 0.5 MG/DL (0.2-1.0) Aspartate Amino Transf (AST/SGOT) 68 U/L (15-37) H Alanine Aminotransferase (ALT/SGPT) 82 U/L (12-78) H Alkaline Phosphatase 198 U/L (46-116) H Total Protein 6.5 G/DL (6.4-8.2) Albumin 2.4 G/DL (3.4-5.0) L Globulin 4.1 g/dL Albumin/Globulin Ratio 0.6 (1.0-2.7) L Current Medications Medications (Trade) Dose Ordered Sig/Lisa Route PRN Reason Start Time Stop Time Status Last Admin Dose Admin Acetaminophen (Tylenol) 650 mg Q4H PRN ORAL Mild Pain/Temp > 100.5 03/21/19 13:14 04/20/19 13:13 03/25/19 18:49 Amlodipine Besylate (Norvasc) 5 mg BID ORAL 03/21/19 18:00 04/18/19 19:59 03/26/19 09:58 Apixaban (Eliquis) 2.5 mg BID ORAL 03/21/19 18:00 04/16/19 08:59 03/26/19 09:58 Atorvastatin Calcium (Lipitor) 10 mg BEDTIME ORAL 03/21/19 21:00 04/15/19 20:59 03/25/19 21:55 Docusate Sodium (Colace) 200 mg DAILY ORAL 03/22/19 09:00 04/16/19 08:59 03/26/19 09:58 Epoetin King (Epoetin King(ESRD on dialysis)) 3,000 unit SUBQ 03/22/19 21:00 04/17/19 20:59 03/25/19 21:54 Epoetin King (Epoetin King(ESRD on dialysis)) 4,000 unit MON- SUBQ 03/22/19 21:00 04/17/19 20:59 03/25/19 21:54 Folic Acid (Folate) 1 mg DAILY ORAL 03/22/19 09:00 04/16/19 08:59 03/26/19 09:59 Heparin Sodium (Porcine) (Heparin Sod 1000 units/ml 10ml) 500 unit ONCE PRN IV FOR HD USE ONLY 03/24/19 13:00 03/26/19 23:59 Hydralazine HCl (Apresoline) 50 mg EVERY 6 HOURS ORAL 03/21/19 18:00 04/19/19 00:00 03/25/19 18:08 Hydralazine HCl (Apresoline) 50 mg Q6H PRN ORAL SBP above 160 03/21/19 13:15 04/20/19 13:14 Metoprolol Succinate (Toprol XL) 50 mg DAILY ORAL 03/24/19 09:00 04/23/19 08:59 03/26/19 09:59 Multivitamins Therapeutic (Therapeutic Multivitamin) 1 ea DAILY ORAL 03/22/19 09:00 04/16/19 08:59 03/26/19 09:58 Piperacillin Sod/ Tazobactam Sod 2.25 gm/Dextrose 55 ml @ 110 mls/hr Q8HR IV 03/24/19 22:00 03/29/19 21:59 03/26/19 05:48 Temazepam (Restoril) 15 mg HSPRN PRN ORAL Insomnia 03/21/19 13:15 03/28/19 13:14 03/25/19 21:55 Tramadol HCl (Ultram) 50 mg Q6H PRN ORAL Moderate Pain (Pain Scale 4-6) 03/22/19 18:30 03/29/19 18:29 03/25/19 14:30 Vancomycin HCl (Vanco rx to dose) 1 ea DAILY PRN MISC Per rx protocol 03/24/19 21:00 04/23/19 20:59 Rm Coughlin MD Mar 26, 2019 10:46
[2019-03-26 12:00] VITALS: BP 119/42
--- NOTE | 2019-03-26 13:13 | Nephrology Progress Note ---
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 (6) CHF (congestive heart failure) (7) Malnutrition of moderate degree (8) Paroxysmal A-fib Plan HR normal, stable on HD 03/25, UF -2800 PAF cardiol eval Tmax 101.1 recultured cxr Subjective Constitutional: Reports: weakness HEENT: Reports: no symptoms Genitourinary: Reports: no symptoms Neurologic/Psychiatric: Reports: no symptoms Objective Objective Last 24 Hour Vital Signs Date Time Temp Pulse Resp B/P (MAP) Pulse Ox O2 Delivery O2 Flow Rate FiO2 03/26/19 12:49 119/42 03/26/19 12:00 97.9 69 20 119/42 (67) 99 03/26/19 09:59 74 126/42 03/26/19 09:58 74 126/42 03/26/19 09:00 Nasal Cannula 2.0 03/26/19 08:00 97.2 74 20 126/42 (70) 99 03/26/19 07:46 74 03/26/19 05:31 118/57 03/26/19 04:00 62 03/26/19 04:00 97.8 63 18 134/53 (80) 96 03/26/19 00:00 114/54 03/26/19 00:00 74 03/26/19 00:00 97.6 72 18 114/54 (74) 95 03/25/19 21:00 Nasal Cannula 2.0 03/25/19 20:00 98.9 76 20 142/52 (82) 98 03/25/19 20:00 78 03/25/19 18:08 143/59 03/25/19 18:08 80 143/59 03/25/19 16:00 80 03/25/19 16:00 97.7 80 20 143/59 (87) 92 Intake and Output 03/25/19 03/26/19 19:00 07:00 Intake Total 2500 ml 160 ml Balance 2500 ml 160 ml Intake Oral 160 ml Hemodialysis 2500 ml # Voids 1 # Bowel Movements 1 Laboratory Tests 03/25/19 18:00: Random Vancomycin Level 13.7 03/26/19 06:01: White Blood Count 7.7, Red Blood Count 2.84L, Hemoglobin 9.0L, Hematocrit 27.3L , Mean Corpuscular Volume 96, Mean Corpuscular Hemoglobin 31.7H, Mean Corpuscular Hemoglobin Concent 33.0, Red Cell Distribution Width 16.1H, Platelet Count 126L, Mean Platelet Volume 7.4, Neutrophils (%) (Auto) 57.8, Lymphocytes (%) (Auto) 22.5, Monocytes (%) (Auto) 14.3H, Eosinophils (%) (Auto) 4.5H, Basophils (%) (Auto) 0.9, Sodium Level 140, Potassium Level 4.1, Chloride Level 101, Carbon Dioxide Level 30, Anion Gap 9, Blood Urea Nitrogen 34H, Creatinine 6.4H, Estimat Glomerular Filtration Rate 6.2, Glucose Level 133H, Calcium Level 8.5, Magnesium Level 2.5H, Total Bilirubin 0.5, Aspartate Amino Transf (AST/SGOT) 68H, Alanine Aminotransferase (ALT/SGPT) 82H, Alkaline Phosphatase 198H, Total Protein 6.5, Albumin 2.4L, Globulin 4.1, Albumin/ Globulin Ratio 0.6L Height (Feet): 5 Height (Inches): 1.00 Weight (Pounds): 112 General Appearance: no apparent distress, thin EENT: normal ENT inspection Neck: normal alignment Cardiovascular: regular rhythm Respiratory/Chest: lungs clear, normal breath sounds Abdomen: no organomegaly Extremities: no edema 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
--- NOTE | 2019-03-26 15:07 | Diagnostic Imaging Report ---
Indication: Abnormal renal function tests, abnormal liver function tests Technique: Lam-scale and duplex images of the upper abdomen were obtained Comparison: none Findings: There is trace ascites Gallbladder is not visualized; there is evidence of surgical clips in the gallbladder fossa so presumably surgically absent. Common bile duct measures 12 mm in diameter. No intrahepatic biliary ductal dilatation. Liver demonstrates normal echogenicity, no focal abnormality. Portal vein and hepatic veins are patent. Pancreas is unremarkable. Spleen is unremarkable. Left kidney measures 8.7 cm in length. Right kidney measures 7 cm length. Both kidneys demonstrate increased echogenicity. There is no hydronephrosis. Right kidney demonstrates an interpolar region cyst. . Non-aneurysmal abdominal aorta . There are bilateral large pleural effusions Impression: Nonvisualized gallbladder, probably surgically removed. Correlate with surgical history Intrahepatic biliary ductal dilatation. Likely related to age and postcholecystectomy state, downstream obstruction not excludable. Correlate with liver function tests, consider MRCP for further evaluation as clinically indicated Echogenic and somewhat atrophic bilateral kidneys, consistent with chronic medical renal disease Large bilateral pleural effusions Trace ascites Incidental finding small right renal cyst
[2019-03-26 16:00] VITALS: BP 122/45
[2019-03-26 20:00] VITALS: BP 123/46
--- NOTE | 2019-03-26 23:02 | General Progress Note ---
Assessment/Plan Status: stable Assessment/Plan: Assessment - abnormal LFT - CHF / hepatic congestion - rhabdo / CPK - viral / hepatitis - structural / mass - Anemia - renal failure - CHF Recommendations - follow LFT - will consider MRI of abd w/o contrast - check hepatitis serologies - optimize cardiac status - check OB Thank you Kyung Stevens MD Subjective Allergies: Coded Allergies: No Known Allergies (Unverified , 03/16/19) Objective Last 24 Hour Vital Signs Date Time Temp Pulse Resp B/P (MAP) Pulse Ox O2 Delivery O2 Flow Rate FiO2 03/26/19 20:00 98.1 61 18 123/46 (71) 98 03/26/19 17:20 122/45 03/26/19 17:20 64 122/45 03/26/19 16:00 97.9 64 20 122/45 (70) 99 03/26/19 15:28 63 03/26/19 12:49 119/42 03/26/19 12:00 97.9 69 20 119/42 (67) 99 03/26/19 11:47 67 03/26/19 09:59 74 126/42 03/26/19 09:58 74 126/42 03/26/19 09:00 Nasal Cannula 2.0 03/26/19 08:00 97.2 74 20 126/42 (70) 99 03/26/19 07:46 74 03/26/19 05:31 118/57 03/26/19 04:00 62 03/26/19 04:00 97.8 63 18 134/53 (80) 96 03/26/19 00:00 114/54 03/26/19 00:00 74 03/26/19 00:00 97.6 72 18 114/54 (74) 95 Intake and Output 03/25/19 03/26/19 19:00 07:00 Intake Total 2500 ml 160 ml Balance 2500 ml 160 ml Intake Oral 160 ml Hemodialysis 2500 ml # Voids 1 # Bowel Movements 1 Laboratory Tests 03/26/19 06:01: White Blood Count 7.7, Red Blood Count 2.84L, Hemoglobin 9.0L, Hematocrit 27.3L , Mean Corpuscular Volume 96, Mean Corpuscular Hemoglobin 31.7H, Mean Corpuscular Hemoglobin Concent 33.0, Red Cell Distribution Width 16.1H, Platelet Count 126L, Mean Platelet Volume 7.4, Neutrophils (%) (Auto) 57.8, Lymphocytes (%) (Auto) 22.5, Monocytes (%) (Auto) 14.3H, Eosinophils (%) (Auto) 4.5H, Basophils (%) (Auto) 0.9, Sodium Level 140, Potassium Level 4.1, Chloride Level 101, Carbon Dioxide Level 30, Anion Gap 9, Blood Urea Nitrogen 34H, Creatinine 6.4H, Estimat Glomerular Filtration Rate 6.2, Glucose Level 133H, Calcium Level 8.5, Magnesium Level 2.5H, Total Bilirubin 0.5, Aspartate Amino Transf (AST/SGOT) 68H, Alanine Aminotransferase (ALT/SGPT) 82H, Alkaline Phosphatase 198H, Total Protein 6.5, Albumin 2.4L, Globulin 4.1, Albumin/ Globulin Ratio 0.6L Height (Feet): 5 Height (Inches): 1.00 Weight (Pounds): 112 Kyung Stevens MD Mar 26, 2019 23:02
--- NOTE | 2019-03-26 23:15 | Progress Note ---
DATE: 03/26/2019 SUBJECTIVE: The patient has defervesced. Monitored rhythm sinus. No atrial tachyarrhythmias. No brian arrhythmias. OBJECTIVE: VITAL SIGNS: Blood pressure 123/46, heart rate 61, respirations 18, afebrile. LUNGS: Clear. CARDIAC: Regular. ABDOMEN: No focal tenderness. Slightly distended. EXTREMITIES: No edema. LABORATORY DATA: Notable white count 7.7, hemoglobin 9. Urinalysis with only 2 to 4 white cells. BUN 34, creatinine 6.4. Elevated liver functions now with AST/ALT jumping to 68/82 and alkaline phosphatase of 198. Albumin 2.4. IMPRESSION: Possible biliary source of recent fevers that have responded to empiric and broad-spectrum antimicrobials. Abdominal ultrasound was performed and revealed nonvisualization of the gallbladder due to prior cholecystectomy. There are some dilated ducts. Other problems include paroxysmal atrial fibrillation, end-stage renal disease, hypertensive heart disease, diastolic congestive heart failure, resolved bradycardia. PLAN: 1. Empiric antimicrobials. 2. Follow up liver function studies. 3. 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 4. Maintain current cardiovascular regimen. 5. GI evaluation. 6. Discharge planning once liver functions improves and final cultures are available. Haroon Lou M.D. DR: WENDY JOB#: [id number] CC:
[2019-03-26] MEDS: traMADol 50mg tab ORAL PRN (23:36)
[2019-03-27] VITALS: BP 132/62
[2019-03-27] MEDS: HydrALAZINE 50mg tab ORAL SCH ×4 (00:18→18:37)
--- NOTE | 2019-03-27 03:00 | Consultation ---
DATE OF CONSULTATION: 03/26/2019 GASTROENTEROLOGY CONSULTATION CONSULTING PHYSICIAN: Kyung Stevens M.D. CHIEF COMPLAINT: I was asked to see this patient by Dr. Haroon Lou and Dr. Edwardo Liu for evaluation of abnormal liver tests. HISTORY OF PRESENT ILLNESS: The patient is a pleasant 88-year-old woman, who was admitted to the hospital due to bradycardia and shortness of breath. The patient was found to have some elevation in liver tests today, which prompted this consultation. There are no chart reports of any previous liver disease, although she does have a history of cholecystectomy in the past. She denies any abdominal pain. She has a history of hypertensive heart disease and congestive heart failure. She is also anemic, but part of this has been assumed to be due to her renal failure. PAST MEDICAL HISTORY: History of end-stage renal disease on dialysis, hypertension, congestive heart failure, diabetes, anemia, status post cholecystectomy, history of deep vein thrombosis, atrial fibrillation, and hard of hearing. FAMILY HISTORY: Noncontributory. SOCIAL HISTORY: The patient is Bulgarian speaking. She does not smoke or drink alcohol. REVIEW OF SYSTEMS: Otherwise negative. PHYSICAL EXAMINATION: GENERAL: A pleasant thin woman, seen in her room. HEENT: Normocephalic and atraumatic. Sclerae are anicteric. Oropharynx is clear. NECK: Supple. CHEST: Clear to auscultation. CARDIOVASCULAR: Revealed a regular rate. ABDOMEN: Soft, nontender. EXTREMITIES: Revealed no edema. There was some left thigh tenderness noted. NEUROLOGIC: Nonfocal. LABORATORY DATA: Laboratory data were noted. ASSESSMENT: This patient has some mild elevation in her transaminases of unclear etiology. Her CPK should be checked to rule out any rhabdomyolysis and she does have some left thigh tenderness. She can also have an MRI of her liver to rule out any mass lesions. This can be considered. Additional serologic evaluation is unremarkable. I would also check hepatitis serologies and follow liver tests conservatively. She also is anemic and therefore stool occult blood should be checked. Her congestive heart failure may be contributing to congestive hepatic disease and therefore her cardiac status should be optimized. RECOMMENDATIONS: Per above discussion and per orders written in the chart. Thank you for asking me to participate in the care of this patient. Kyung Stevens M.D. DR: Aman JOB#: [id number] CC: TOSIN
[2019-03-27 04:00] VITALS: BP 129/82
[2019-03-27] MEDS: Zosyn 2.25 gm in D5W 55ml IV SCH ×2 (06:21→13:24)
[2019-03-27 08:00] VITALS: BP 134/72
[2019-03-27 08:39] LABS: HEMATOCRIT 29.1 % (37.0-47.0); HEMOGLOBIN 9.4 G/DL (12.0-16.0); LYMPHOCYTES % (AUTO) 25.3 % (20.0-45.0); MEAN CORPUSCULAR VOLUME 96 FL (80-99); MONOCYTES % (AUTO) 8.4 % (1.0-10.0); NEUTROPHILS % (AUTO) 61.4 % (45.0-75.0); PLATELET COUNT 157 K/UL (150-450); RED BLOOD COUNT 3.03 M/UL (4.20-5.40); WHITE BLOOD COUNT 10.1 K/UL (4.8-10.8)
[2019-03-27 09:03] LABS: ALANINE AMINOTRANSFERASE 60 U/L (12-78); ALBUMIN 2.7 G/DL (3.4-5.0); ALKALINE PHOSPHATASE 178 U/L (46-116); ANION GAP 13 mmol/L (5-15); ASPARTATE AMINO TRANSFERASE 34 U/L (15-37); BILIRUBIN,DIRECT 0.2 MG/DL (0.0-0.3); BILIRUBIN,TOTAL 0.6 MG/DL (0.2-1.0); BLOOD UREA NITROGEN 47 mg/dL (7-18); CALCIUM 8.9 MG/DL (8.5-10.1); CARBON DIOXIDE 28 MMOL/L (21-32); CHLORIDE 97 MMOL/L (98-107); CREATININE 7.8 MG/DL (0.55-1.30); POTASSIUM 4.3 MMOL/L (3.5-5.1); SODIUM 137 MMOL/L (136-145)
[2019-03-27 09:08] LABS: CREATINE KINASE 21 U/L (26-308)
[2019-03-27] MEDS: Eliquis 2.5mg tablet ORAL SCH ×2 (10:01→18:37)
[2019-03-27] MEDS: Multivitamin w/Minerals tab ORAL SCH (10:01)
[2019-03-27] MEDS: Docusate 100mg cap ORAL SCH (10:01)
[2019-03-27] MEDS: Metoprolol Succinate XL 50mg tab ORAL SCH (10:01)
--- NOTE | 2019-03-27 10:46 | Infectious Diseases Prog Note ---
Assessment/Plan Assessment/Plan antibiotics : vancomycin iv, zosyn A 1. pneumonia 2. diabetes mellitus 3. hypertension 4. renal failure on HD 5. cholangitis 6. pleural effusions P 1. continue iv vancomycin, zosyn 2. will follow up cultures Subjective ROS Limited/Unobtainable: Yes Allergies: Coded Allergies: No Known Allergies (Unverified , 03/16/19) Objective Vital Signs Last 24 Hour Vital Signs Date Time Temp Pulse Resp B/P (MAP) Pulse Ox O2 Delivery O2 Flow Rate FiO2 03/27/19 10:01 65 134/72 03/27/19 10:01 65 134/72 03/27/19 08:00 98.1 65 18 134/72 (92) 93 03/27/19 06:21 141/56 03/27/19 04:00 61 03/27/19 04:00 97.4 71 18 129/82 (98) 98 03/27/19 00:18 132/62 03/27/19 00:00 62 03/27/19 00:00 98.0 65 18 132/62 (85) 99 03/26/19 21:00 Nasal Cannula 2.0 03/26/19 20:00 98.1 61 18 123/46 (71) 98 03/26/19 20:00 60 03/26/19 17:20 122/45 03/26/19 17:20 64 122/45 03/26/19 16:00 97.9 64 20 122/45 (70) 99 03/26/19 15:28 63 03/26/19 12:49 119/42 03/26/19 12:00 97.9 69 20 119/42 (67) 99 03/26/19 11:47 67 Height (Feet): 5 Height (Inches): 1.00 Weight (Pounds): 112 Respiratory/Chest: lungs clear Cardiovascular: normal rate, regular rhythm, no gallop/murmur Abdomen: soft, non tender Extremities: no edema Microbiology Date/Time Source Procedure Growth Status 03/25/19 18:00 Blood Blood Culture - Preliminary NO GROWTH AFTER 24 HOURS Resulted 03/24/19 20:14 Blood Blood Culture - Preliminary NO GROWTH AFTER 48 HOURS Resulted 03/24/19 20:10 Blood Blood Culture - Preliminary NO GROWTH AFTER 48 HOURS Resulted Laboratory Tests Test 03/27/19 07:40 White Blood Count 10.1 K/UL (4.8-10.8) Red Blood Count 3.03 M/UL (4.20-5.40) L Hemoglobin 9.4 G/DL (12.0-16.0) L Hematocrit 29.1 % (37.0-47.0) L Mean Corpuscular Volume 96 FL (80-99) Mean Corpuscular Hemoglobin 31.2 PG (27.0-31.0) H Mean Corpuscular Hemoglobin Concent 32.4 G/DL (32.0-36.0) Red Cell Distribution Width 16.0 % (11.6-14.8) H Platelet Count 157 K/UL (150-450) Mean Platelet Volume 7.6 FL (6.5-10.1) Neutrophils (%) (Auto) 61.4 % (45.0-75.0) Lymphocytes (%) (Auto) 25.3 % (20.0-45.0) Monocytes (%) (Auto) 8.4 % (1.0-10.0) Eosinophils (%) (Auto) 4.0 % (0.0-3.0) H Basophils (%) (Auto) 1.0 % (0.0-2.0) Sodium Level 137 MMOL/L (136-145) Potassium Level 4.3 MMOL/L (3.5-5.1) Chloride Level 97 MMOL/L (98-107) L Carbon Dioxide Level 28 MMOL/L (21-32) Anion Gap 13 mmol/L (5-15) Blood Urea Nitrogen 47 mg/dL (7-18) H Creatinine 7.8 MG/DL (0.55-1.30) H Estimat Glomerular Filtration Rate 4.9 mL/min (>60) Glucose Level 183 MG/DL (74-106) H Calcium Level 8.9 MG/DL (8.5-10.1) Total Bilirubin 0.6 MG/DL (0.2-1.0) Direct Bilirubin 0.2 MG/DL (0.0-0.3) Aspartate Amino Transf (AST/SGOT) 34 U/L (15-37) Alanine Aminotransferase (ALT/SGPT) 60 U/L (12-78) Alkaline Phosphatase 178 U/L (46-116) H Total Creatine Kinase 21 U/L (26-308) L Total Protein 7.2 G/DL (6.4-8.2) Albumin 2.7 G/DL (3.4-5.0) L Hepatitis A IgM Antibody Pending Hepatitis B Surface Antigen Pending Hepatitis B Core IgM Antibody Pending Hepatitis C Antibody Pending Current Medications Medications (Trade) Dose Ordered Sig/Lisa Route PRN Reason Start Time Stop Time Status Last Admin Dose Admin Acetaminophen (Tylenol) 650 mg Q4H PRN ORAL Mild Pain/Temp > 100.5 03/21/19 13:14 04/20/19 13:13 03/25/19 18:49 Amlodipine Besylate (Norvasc) 5 mg BID ORAL 03/21/19 18:00 04/18/19 19:59 03/27/19 10:01 Apixaban (Eliquis) 2.5 mg BID ORAL 03/21/19 18:00 04/16/19 08:59 03/27/19 10:01 Atorvastatin Calcium (Lipitor) 10 mg BEDTIME ORAL 03/21/19 21:00 04/15/19 20:59 03/26/19 21:45 Docusate Sodium (Colace) 200 mg DAILY ORAL 03/22/19 09:00 04/16/19 08:59 03/27/19 10:01 Epoetin King (Epoetin King(ESRD on dialysis)) 3,000 unit SUBQ 03/22/19 21:00 04/17/19 20:59 03/25/19 21:54 Epoetin King (Epoetin King(ESRD on dialysis)) 4,000 unit SUBQ 03/22/19 21:00 04/17/19 20:59 03/25/19 21:54 Folic Acid (Folate) 1 mg DAILY ORAL 03/22/19 09:00 04/16/19 08:59 03/27/19 10:01 Hydralazine HCl (Apresoline) 50 mg EVERY 6 HOURS ORAL 03/21/19 18:00 04/19/19 00:00 03/27/19 06:21 Hydralazine HCl (Apresoline) 50 mg Q6H PRN ORAL SBP above 160 03/21/19 13:15 04/20/19 13:14 Metoprolol Succinate (Toprol XL) 50 mg DAILY ORAL 03/24/19 09:00 04/23/19 08:59 03/27/19 10:01 Multivitamins Therapeutic (Therapeutic Multivitamin) 1 ea DAILY ORAL 03/22/19 09:00 04/16/19 08:59 03/27/19 10:01 Piperacillin Sod/ Tazobactam Sod 2.25 gm/Dextrose 55 ml @ 110 mls/hr Q8HR IV 03/24/19 22:00 03/29/19 21:59 03/27/19 06:21 Temazepam (Restoril) 15 mg HSPRN PRN ORAL Insomnia 03/21/19 13:15 03/28/19 13:14 03/26/19 21:45 Tramadol HCl (Ultram) 50 mg Q6H PRN ORAL Moderate Pain (Pain Scale 4-6) 03/22/19 18:30 03/29/19 18:29 03/26/19 23:36 Vancomycin HCl (Vanco rx to dose) 1 ea DAILY PRN MISC Per rx protocol 03/24/19 21:00 04/23/19 20:59 Rm Coughlin MD Mar 27, 2019 10:46
[2019-03-27 12:00] VITALS: BP 139/44
[2019-03-27] MEDS ORDERED: HydrALAZINE 50mg tab ORAL PRN (14:52)
[2019-03-27] MEDS ORDERED: traMADol 50mg tab ORAL PRN (14:53)
[2019-03-27 16:00] VITALS: BP 158/64
--- NOTE | 2019-03-27 18:03 | Nephrology Progress Note ---
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 (6) CHF (congestive heart failure) (7) Malnutrition of moderate degree (8) Paroxysmal A-fib Plan HR normal, stable on HD 03/25, UF -2800 PAF cardiol eval Tmax 101.1 recultured cxr done, ID evaluation Subjective Constitutional: Reports: weakness HEENT: Reports: no symptoms Genitourinary: Reports: no symptoms Neurologic/Psychiatric: Reports: no symptoms Objective Objective Last 24 Hour Vital Signs Date Time Temp Pulse Resp B/P (MAP) Pulse Ox O2 Delivery O2 Flow Rate FiO2 03/27/19 16:00 98.2 67 18 158/64 (95) 94 03/27/19 12:37 139/44 03/27/19 12:00 97.9 62 18 139/44 (75) 93 03/27/19 11:28 65 03/27/19 10:01 65 134/72 03/27/19 10:01 65 134/72 03/27/19 09:00 Nasal Cannula 2.0 03/27/19 08:00 98.1 65 18 134/72 (92) 93 03/27/19 07:39 66 03/27/19 06:21 141/56 03/27/19 04:00 61 03/27/19 04:00 97.4 71 18 129/82 (98) 98 03/27/19 00:18 132/62 03/27/19 00:00 62 03/27/19 00:00 98.0 65 18 132/62 (85) 99 03/26/19 21:00 Nasal Cannula 2.0 03/26/19 20:00 98.1 61 18 123/46 (71) 98 03/26/19 20:00 60 Intake and Output 03/26/19 03/27/19 19:00 07:00 Intake Total 291 ml Balance 291 ml Intake Oral 236 ml IV Total 55 ml # Voids 1 2 # Bowel Movements 4 1 Laboratory Tests 03/27/19 07:40: White Blood Count 10.1, Red Blood Count 3.03L, Hemoglobin 9.4L, Hematocrit 29.1L , Mean Corpuscular Volume 96, Mean Corpuscular Hemoglobin 31.2H, Mean Corpuscular Hemoglobin Concent 32.4, Red Cell Distribution Width 16.0H, Platelet Count 157, Mean Platelet Volume 7.6, Neutrophils (%) (Auto) 61.4, Lymphocytes (%) (Auto) 25.3, Monocytes (%) (Auto) 8.4, Eosinophils (%) (Auto) 4.0H, Basophils (%) (Auto) 1.0, Sodium Level 137, Potassium Level 4.3, Chloride Level 97L, Carbon Dioxide Level 28, Anion Gap 13, Blood Urea Nitrogen 47H, Creatinine 7.8H, Estimat Glomerular Filtration Rate 4.9, Glucose Level 183H, Calcium Level 8.9, Total Bilirubin 0.6, Direct Bilirubin 0.2, Aspartate Amino Transf (AST/SGOT) 34, Alanine Aminotransferase (ALT/SGPT) 60, Alkaline Phosphatase 178H, Total Creatine Kinase 21L, Total Protein 7.2, Albumin 2.7L, Hepatitis A IgM Antibody [Pending], Hepatitis B Surface Antigen [Pending], Hepatitis B Core IgM Antibody [Pending], Hepatitis C Antibody [Pending] Height (Feet): 5 Height (Inches): 1.00 Weight (Pounds): 112 General Appearance: no apparent distress, alert EENT: normal ENT inspection Neck: normal alignment Cardiovascular: normal rate Respiratory/Chest: lungs clear, normal breath sounds Abdomen: non tender, soft Extremities: no edema 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
[2019-03-27 20:00] VITALS: BP 130/64
--- NOTE | 2019-03-27 20:38 | General Progress Note ---
Assessment/Plan Status: stable Assessment/Plan: Assessment - abnormal LFT - CHF / hepatic congestion - rhabdo / CPK - viral / hepatitis - structural / mass - Anemia - renal failure - CHF Recommendations - follow LFT - MRI of abd w/o contrast - f/u hepatitis serologies - optimize cardiac status - check OB Subjective Allergies: Coded Allergies: No Known Allergies (Unverified , 03/16/19) Subjective above noted NAD no abd pain Objective Last 24 Hour Vital Signs Date Time Temp Pulse Resp B/P (MAP) Pulse Ox O2 Delivery O2 Flow Rate FiO2 03/27/19 18:38 64 137/52 03/27/19 18:37 137/52 03/27/19 16:00 98.2 67 18 158/64 (95) 94 03/27/19 12:37 139/44 03/27/19 12:00 97.9 62 18 139/44 (75) 93 03/27/19 11:28 65 03/27/19 10:01 65 134/72 03/27/19 10:01 65 134/72 03/27/19 09:00 Nasal Cannula 2.0 03/27/19 08:00 98.1 65 18 134/72 (92) 93 03/27/19 07:39 66 03/27/19 06:21 141/56 03/27/19 04:00 61 03/27/19 04:00 97.4 71 18 129/82 (98) 98 03/27/19 00:18 132/62 03/27/19 00:00 62 03/27/19 00:00 98.0 65 18 132/62 (85) 99 03/26/19 21:00 Nasal Cannula 2.0 Intake and Output 03/26/19 03/27/19 18:59 06:59 Intake Total 291 ml Balance 291 ml Intake Oral 236 ml IV Total 55 ml # Voids 1 2 # Bowel Movements 4 1 Laboratory Tests 03/27/19 07:40: White Blood Count 10.1, Red Blood Count 3.03L, Hemoglobin 9.4L, Hematocrit 29.1L , Mean Corpuscular Volume 96, Mean Corpuscular Hemoglobin 31.2H, Mean Corpuscular Hemoglobin Concent 32.4, Red Cell Distribution Width 16.0H, Platelet Count 157, Mean Platelet Volume 7.6, Neutrophils (%) (Auto) 61.4, Lymphocytes (%) (Auto) 25.3, Monocytes (%) (Auto) 8.4, Eosinophils (%) (Auto) 4.0H, Basophils (%) (Auto) 1.0, Sodium Level 137, Potassium Level 4.3, Chloride Level 97L, Carbon Dioxide Level 28, Anion Gap 13, Blood Urea Nitrogen 47H, Creatinine 7.8H, Estimat Glomerular Filtration Rate 4.9, Glucose Level 183H, Calcium Level 8.9, Total Bilirubin 0.6, Direct Bilirubin 0.2, Aspartate Amino Transf (AST/SGOT) 34, Alanine Aminotransferase (ALT/SGPT) 60, Alkaline Phosphatase 178H, Total Creatine Kinase 21L, Total Protein 7.2, Albumin 2.7L, Hepatitis A IgM Antibody [Pending], Hepatitis B Surface Antigen [Pending], Hepatitis B Core IgM Antibody [Pending], Hepatitis C Antibody [Pending] Height (Feet): 5 Height (Inches): 1.00 Weight (Pounds): 112 Objective WDWN NCAT supple CTA RR abd soft ND no edema Kyung Stevens MD Mar 27, 2019 20:38
[2019-03-27] MEDS ORDERED: Epoetin Alfa-EPBX(ESRD on dialysis)4000 units/ml vial SUBQ SCH (21:00)
[2019-03-27] MEDS ORDERED: Epoetin Alfa-EPBX(ESRD on dialysis)3000 units/ml vial SUBQ SCH (21:00)
[2019-03-27] MEDS: Piperacillin/Tazobactam 2.25 GM in D5W 55 ML IV SCH (21:34)
[2019-03-28] VITALS: BP 124/51
[2019-03-28] MEDS: HydrALAZINE 50mg tab ORAL SCH ×4 (00:29→18:15)
--- NOTE | 2019-03-28 03:15 | Progress Note ---
DATE: 03/27/2019 CARDIOLOGY PROGRESS NOTE SUBJECTIVE: No complaints. No distress. Tolerating diet. OBJECTIVE: VITAL SIGNS: Blood pressure is 134/72, pulse 65, respirations 18. LUNGS: Bilateral breath sounds. ABDOMEN: Soft. CARDIAC: Regular rhythm and rate. Normal S1, S2. No edema. LABORATORY AND DIAGNOSTIC DATA: Liver function tests slightly improved. MRI of the abdomen pending. IMPRESSION: 1. Transaminitis. 2. Fever spike with resolution on empiric antimicrobials. 3. End-stage renal disease. 4. Hypertensive heart disease. 5. Diastolic congestive heart failure. 6. Paroxysmal atrial fibrillation. 7. History of DVT. PLAN: 1. Continue antimicrobials. 2. Await MRI. 3. Maintain current cardiovascular regimen. 4. Discharge planning to follow once MRI reviewed. Haroon Lou M.D. DR: FORD JOB#: [id number] CC:
[2019-03-28 04:00] VITALS: BP 133/53
[2019-03-28] MEDS: Piperacillin/Tazobactam 2.25 GM in D5W 55 ML IV SCH ×3 (05:18→21:32)
[2019-03-28 06:02] LABS: ALANINE AMINOTRANSFERASE 41 U/L (12-78); ALBUMIN 2.6 G/DL (3.4-5.0); ALBUMIN/GLOBULIN RATIO 0.6 (1.0-2.7); ALKALINE PHOSPHATASE 145 U/L (46-116); ANION GAP 12 mmol/L (5-15); ASPARTATE AMINO TRANSFERASE 22 U/L (15-37); BILIRUBIN,TOTAL 0.6 MG/DL (0.2-1.0); BLOOD UREA NITROGEN 58 mg/dL (7-18); CALCIUM 8.7 MG/DL (8.5-10.1); CARBON DIOXIDE 28 MMOL/L (21-32); CHLORIDE 97 MMOL/L (98-107); CREATININE 8.9 MG/DL (0.55-1.30); POTASSIUM 4.4 MMOL/L (3.5-5.1); SODIUM 137 MMOL/L (136-145)
[2019-03-28 08:00] VITALS: BP 124/42
[2019-03-28] MEDS: Docusate 100mg cap ORAL SCH (08:35)
[2019-03-28] MEDS: Eliquis 2.5mg tablet ORAL SCH ×2 (08:36→18:15)
[2019-03-28] MEDS: Multivitamin w/Minerals tab ORAL SCH (08:36)
[2019-03-28] MEDS: Metoprolol Succinate XL 50mg tab ORAL SCH (08:37)
--- NOTE | 2019-03-28 11:05 | General Progress Note ---
Assessment/Plan Status: stable Assessment/Plan: Assessment - abnormal LFT - now just minimal Alk phos elevationi - CHF / hepatic congestion - rhabdo / CPK - viral / hepatitis - structural / mass - Anemia - renal failure - CHF Recommendations - follow LFT - MRI cancelled due to refusal - can re-address at later date, or do ERCP if needed - f/u hepatitis serologies - negative - optimize cardiac status - check OB - Pending Subjective Allergies: Coded Allergies: No Known Allergies (Unverified , 03/16/19) Subjective above noted NAD no abd pain Refused MRI Objective Last 24 Hour Vital Signs Date Time Temp Pulse Resp B/P (MAP) Pulse Ox O2 Delivery O2 Flow Rate FiO2 03/28/19 08:37 60 124/42 03/28/19 08:37 60 124/42 03/28/19 08:00 98.1 60 20 124/42 (69) 95 03/28/19 05:18 133/53 03/28/19 04:00 98.6 63 18 133/53 (79) 96 03/28/19 00:29 124/51 03/28/19 00:00 98.6 61 18 124/51 (75) 96 03/27/19 21:00 Nasal Cannula 2.0 03/27/19 20:13 95 Nasal Cannula 2.0 28 03/27/19 20:00 98.4 64 18 130/64 (86) 96 03/27/19 18:38 64 137/52 03/27/19 18:37 137/52 03/27/19 16:00 98.2 67 18 158/64 (95) 94 03/27/19 12:37 139/44 03/27/19 12:00 97.9 62 18 139/44 (75) 93 03/27/19 11:28 65 Intake and Output 03/27/19 03/28/19 19:00 07:00 Intake Total 175 ml 110 ml Output Total 50 ml Balance 175 ml 60 ml Intake Oral 120 ml IV Total 55 ml 110 ml Output Urine Total 50 ml # Voids 1 # Bowel Movements 4 Laboratory Tests 03/27/19 22:30: Stool Occult Blood [Pending] 03/28/19 04:36: Sodium Level 137, Potassium Level 4.4, Chloride Level 97L, Carbon Dioxide Level 28, Anion Gap 12, Blood Urea Nitrogen 58H, Creatinine 8.9H, Estimat Glomerular Filtration Rate 4.2, Glucose Level 159H, Calcium Level 8.7, Total Bilirubin 0.6 , Aspartate Amino Transf (AST/SGOT) 22, Alanine Aminotransferase (ALT/SGPT) 41, Alkaline Phosphatase 145H, Total Protein 6.7, Albumin 2.6L, Globulin 4.1, Albumin/Globulin Ratio 0.6L, Random Vancomycin Level 22.3 Height (Feet): 5 Height (Inches): 1.00 Weight (Pounds): 117 Objective WDWN NCAT supple CTA RR abd soft ND no edema Kyung Stevens MD Mar 28, 2019 11:05
--- NOTE | 2019-03-28 11:53 | Infectious Diseases Prog Note ---
Assessment/Plan Assessment/Plan A 1. pneumonia 2. diabetes mellitus 3. hypertension 4. renal failure on HD 5. Elevated transaminase 6. pleural effusions P 1. continue iv vancomycin, Zosyn 2. will follow up cultures Subjective ROS Limited/Unobtainable: Yes Constitutional: Denies: fever Allergies: Coded Allergies: No Known Allergies (Unverified , 03/16/19) Objective Vital Signs Last 24 Hour Vital Signs Date Time Temp Pulse Resp B/P (MAP) Pulse Ox O2 Delivery O2 Flow Rate FiO2 03/28/19 09:00 Nasal Cannula 2.0 03/28/19 08:37 60 124/42 03/28/19 08:37 60 124/42 03/28/19 08:00 98.1 60 20 124/42 (69) 95 03/28/19 05:18 133/53 03/28/19 04:00 98.6 63 18 133/53 (79) 96 03/28/19 00:29 124/51 03/28/19 00:00 98.6 61 18 124/51 (75) 96 03/27/19 21:00 Nasal Cannula 2.0 03/27/19 20:13 95 Nasal Cannula 2.0 28 03/27/19 20:00 98.4 64 18 130/64 (86) 96 03/27/19 18:38 64 137/52 03/27/19 18:37 137/52 03/27/19 16:00 98.2 67 18 158/64 (95) 94 03/27/19 12:37 139/44 03/27/19 12:00 97.9 62 18 139/44 (75) 93 Height (Feet): 5 Height (Inches): 1.00 Weight (Pounds): 117 General Appearance: no acute distress HEENT: mucous membranes moist Respiratory/Chest: lungs clear Cardiovascular: normal rate Abdomen: soft, non tender Extremities: no edema Neurologic/Psychiatric: other - sleeping Microbiology Date/Time Source Procedure Growth Status 03/25/19 18:00 Blood Blood Culture - Preliminary NO GROWTH AFTER 48 HOURS Resulted Laboratory Tests Test 03/27/19 22:30 03/28/19 04:36 Stool Occult Blood Pending Sodium Level 137 MMOL/L (136-145) Potassium Level 4.4 MMOL/L (3.5-5.1) Chloride Level 97 MMOL/L (98-107) L Carbon Dioxide Level 28 MMOL/L (21-32) Anion Gap 12 mmol/L (5-15) Blood Urea Nitrogen 58 mg/dL (7-18) H Creatinine 8.9 MG/DL (0.55-1.30) H Estimat Glomerular Filtration Rate 4.2 mL/min (>60) Glucose Level 159 MG/DL (74-106) H Calcium Level 8.7 MG/DL (8.5-10.1) Total Bilirubin 0.6 MG/DL (0.2-1.0) Aspartate Amino Transf (AST/SGOT) 22 U/L (15-37) Alanine Aminotransferase (ALT/SGPT) 41 U/L (12-78) Alkaline Phosphatase 145 U/L (46-116) H Total Protein 6.7 G/DL (6.4-8.2) Albumin 2.6 G/DL (3.4-5.0) L Globulin 4.1 g/dL Albumin/Globulin Ratio 0.6 (1.0-2.7) L Random Vancomycin Level 22.3 ug/mL Current Medications Medications (Trade) Dose Ordered Sig/Lisa Route PRN Reason Start Time Stop Time Status Last Admin Dose Admin Acetaminophen (Tylenol) 650 mg Q4H PRN ORAL Mild Pain/Temp > 100.5 03/27/19 14:52 04/26/19 14:51 Amlodipine Besylate (Norvasc) 5 mg BID ORAL 03/27/19 18:00 04/18/19 19:59 03/28/19 08:37 Apixaban (Eliquis) 2.5 mg BID ORAL 03/27/19 18:00 04/16/19 08:59 03/28/19 08:36 Atorvastatin Calcium (Lipitor) 10 mg BEDTIME ORAL 03/27/19 21:00 04/15/19 20:59 03/27/19 21:33 Docusate Sodium (Colace) 200 mg DAILY ORAL 03/28/19 09:00 04/16/19 08:59 03/28/19 08:35 Epoetin King (Epoetin King(ESRD on dialysis)) 3,000 unit MON-MON-MON SUBQ 03/27/19 21:00 04/17/19 20:59 03/27/19 21:35 Epoetin King (Epoetin King(ESRD on dialysis)) 4,000 unit MON-MON-MON SUBQ 03/27/19 21:00 04/17/19 20:59 03/27/19 21:34 Folic Acid (Folate) 1 mg DAILY ORAL 03/28/19 09:00 04/16/19 08:59 03/28/19 08:37 Hydralazine HCl (Apresoline) 50 mg EVERY 6 HOURS ORAL 03/27/19 18:00 04/19/19 00:00 03/28/19 05:18 Hydralazine HCl (Apresoline) 50 mg Q6H PRN ORAL SBP above 160 03/27/19 14:52 04/26/19 14:51 Metoprolol Succinate (Toprol XL) 50 mg DAILY ORAL 03/28/19 09:00 04/23/19 08:59 03/28/19 08:37 Multivitamins Therapeutic (Therapeutic Multivitamin) 1 ea DAILY ORAL 03/28/19 09:00 04/16/19 08:59 03/28/19 08:36 Piperacillin Sod/ Tazobactam Sod 2.25 gm/Dextrose 55 ml @ 110 mls/hr Q8HR IV 03/27/19 22:00 03/29/19 21:59 03/28/19 05:18 Temazepam (Restoril) 15 mg HSPRN PRN ORAL Insomnia 03/27/19 14:53 04/03/19 14:52 03/27/19 21:33 Tramadol HCl (Ultram) 50 mg Q6H PRN ORAL Moderate Pain (Pain Scale 4-6) 03/27/19 14:53 04/03/19 14:52 Vancomycin HCl (Vanco rx to dose) 1 ea DAILY PRN MISC Per rx protocol 03/28/19 09:00 04/23/19 20:59 Brendan Bennett MD Mar 28, 2019 11:53
[2019-03-28 12:00] VITALS: BP 135/47
--- NOTE | 2019-03-28 13:40 | Nephrology Progress Note ---
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 (6) CHF (congestive heart failure) (7) Malnutrition of moderate degree (8) Paroxysmal A-fib Plan HR normal, stable on HD 03/25, UF -2800, HD PAF cardiol eval Tmax 101.1 recultured cxr done, ID evaluation, fever resolved Subjective Constitutional: Reports: no symptoms HEENT: Reports: no symptoms Genitourinary: Reports: no symptoms Neurologic/Psychiatric: Reports: no symptoms Objective Objective Last 24 Hour Vital Signs Date Time Temp Pulse Resp B/P (MAP) Pulse Ox O2 Delivery O2 Flow Rate FiO2 03/28/19 12:00 97.8 62 20 135/47 (76) 94 03/28/19 12:00 135/47 03/28/19 09:00 Nasal Cannula 2.0 03/28/19 08:37 60 124/42 03/28/19 08:37 60 124/42 03/28/19 08:00 98.1 60 20 124/42 (69) 95 03/28/19 05:18 133/53 03/28/19 04:00 98.6 63 18 133/53 (79) 96 03/28/19 00:29 124/51 03/28/19 00:00 98.6 61 18 124/51 (75) 96 03/27/19 21:00 Nasal Cannula 2.0 03/27/19 20:13 95 Nasal Cannula 2.0 28 03/27/19 20:00 98.4 64 18 130/64 (86) 96 03/27/19 18:38 64 137/52 03/27/19 18:37 137/52 03/27/19 16:00 98.2 67 18 158/64 (95) 94 Intake and Output 03/27/19 03/28/19 19:00 07:00 Intake Total 175 ml 110 ml Output Total 50 ml Balance 175 ml 60 ml Intake Oral 120 ml IV Total 55 ml 110 ml Output Urine Total 50 ml # Voids 1 # Bowel Movements 4 Laboratory Tests 03/27/19 22:30: Stool Occult Blood Positive 03/28/19 04:36: Sodium Level 137, Potassium Level 4.4, Chloride Level 97L, Carbon Dioxide Level 28, Anion Gap 12, Blood Urea Nitrogen 58H, Creatinine 8.9H, Estimat Glomerular Filtration Rate 4.2, Glucose Level 159H, Calcium Level 8.7, Total Bilirubin 0.6 , Aspartate Amino Transf (AST/SGOT) 22, Alanine Aminotransferase (ALT/SGPT) 41, Alkaline Phosphatase 145H, Total Protein 6.7, Albumin 2.6L, Globulin 4.1, Albumin/Globulin Ratio 0.6L, Random Vancomycin Level 22.3 Height (Feet): 5 Height (Inches): 1.00 Weight (Pounds): 117 General Appearance: no apparent distress, alert EENT: normal ENT inspection Neck: non-tender Cardiovascular: normal rate Respiratory/Chest: lungs clear Abdomen: normal bowel sounds, non tender Extremities: no edema 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
[2019-03-28 16:00] VITALS: BP 132/67
[2019-03-28 20:00] VITALS: BP 126/62
[2019-03-29 00:20] VITALS: BP 136/58
[2019-03-29] MEDS: HydrALAZINE 50mg tab ORAL SCH ×2 (00:22→05:39)
--- NOTE | 2019-03-29 00:30 | Progress Note ---
DATE: 03/28/2019 CARDIOLOGY PROGRESS NOTE SUBJECTIVE: The patient is scheduled for hemodialysis with ultrafiltration today. No chest pain. No shortness of breath. No nausea, vomiting, or abdominal pain. OBJECTIVE: VITAL SIGNS: Blood pressure 136/47, pulse 62, respiratory rate 20. LUNGS: With good breath sounds. No wheezing. CARDIAC: Regular. Normal S1, S2 with a fourth heart sound. ABDOMEN: Soft. No focal tenderness. EXTREMITIES: With no edema. LABORATORY DATA: Sodium 137, potassium 4.4, bicarb 28, BUN 58, creatinine 8.9. Liver function studies have normalized. Albumin 2.6. IMPRESSION: 1. Defervesced. 2. Possible transient choledocholithiasis and now with resolved transaminitis. 3. Recovered pneumonia. 4. History of congestive heart disease. 5. End-stage renal disease. 6. Acute on chronic diastolic congestive heart failure. PLAN: 1. No additional hepatobiliary workup. 2. Transition to oral antimicrobials. 3. Respiratory hygiene. 4. Hemodialysis with ultrafiltration. 5. Maintain current cardiovascular regimen. 6. Discharge plan, following hemodialysis with ultrafiltration. Haroon Lou M.D. DR: JUANPABLO JOB#: [id number] CC:
[2019-03-29 04:00] VITALS: BP 95/60
[2019-03-29] MEDS ORDERED: Piperacillin/Tazobactam 2.25 GM in D5W 55 ML IV SCH (06:00)
[2019-03-29 08:00] VITALS: BP 118/47
[2019-03-29] MEDS: Multivitamin w/Minerals tab ORAL SCH (08:20)
[2019-03-29] MEDS: Docusate 100mg cap ORAL SCH (08:20)
[2019-03-29] MEDS: Metoprolol Succinate XL 50mg tab ORAL SCH (08:21)
[2019-03-29] MEDS: Eliquis 2.5mg tablet ORAL SCH ×2 (08:21→08:22)
--- NOTE | 2019-03-29 09:21 | Nephrology Progress Note ---
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 (6) CHF (congestive heart failure) (7) Malnutrition of moderate degree (8) Paroxysmal A-fib Plan HR normal, stable on HD 03/25, UF -2800, HD PAF cardiol eval Tmax 101.1 recultured cxr done, ID evaluation, fever resolved, bp low-normal and hydralazine dose reduced Subjective Constitutional: Reports: weakness HEENT: Reports: no symptoms Genitourinary: Reports: no symptoms Neurologic/Psychiatric: Reports: no symptoms Objective Objective Last 24 Hour Vital Signs Date Time Temp Pulse Resp B/P (MAP) Pulse Ox O2 Delivery O2 Flow Rate FiO2 03/29/19 08:21 75 118/47 03/29/19 08:21 75 118/47 03/29/19 08:00 98.2 75 19 118/47 (70) 94 03/29/19 05:39 95/60 03/29/19 04:00 98.7 74 19 95/60 (72) 94 03/29/19 00:22 136/58 03/29/19 00:20 98.8 68 18 136/58 (84) 93 03/28/19 21:00 Room Air 03/28/19 20:00 97.6 61 18 126/62 (83) 95 03/28/19 18:15 141/50 03/28/19 18:15 74 141/50 03/28/19 16:00 97.8 62 20 132/67 (88) 94 03/28/19 14:24 Nasal Cannula 2.0 28 03/28/19 12:00 97.8 62 20 135/47 (76) 94 03/28/19 12:00 135/47 Intake and Output 03/28/19 03/29/19 19:00 07:00 Intake Total 2590 ml 200 ml Balance 2590 ml 200 ml Intake Oral 480 ml 200 ml IV Total 110 ml Hemodialysis 2000 ml # Voids 1 # Bowel Movements 1 1 Height (Feet): 5 Height (Inches): 1.00 Weight (Pounds): 115 General Appearance: no apparent distress, alert EENT: normal ENT inspection Neck: normal alignment Cardiovascular: normal rate, regular rhythm Respiratory/Chest: lungs clear Extremities: no edema Lang,Corky MD Mar 29, 2019 09:21
--- NOTE | 2019-03-29 10:12 | Infectious Diseases Prog Note ---
Assessment/Plan Assessment/Plan antibiotics : vancomycin iv, zosyn A 1. pneumonia 2. diabetes mellitus 3. hypertension 4. renal failure on HD 5. cholangitis 6. pleural effusions P 1. d/c iv vancomycin, zosyn 2. start and continue po levoquin 4 more days 3. will follow up cultures Subjective ROS Limited/Unobtainable: Yes Allergies: Coded Allergies: No Known Allergies (Unverified , 03/16/19) Objective Vital Signs Last 24 Hour Vital Signs Date Time Temp Pulse Resp B/P (MAP) Pulse Ox O2 Delivery O2 Flow Rate FiO2 03/29/19 09:00 Room Air 03/29/19 08:21 75 118/47 03/29/19 08:21 75 118/47 03/29/19 08:00 98.2 75 19 118/47 (70) 94 03/29/19 05:39 95/60 03/29/19 04:00 98.7 74 19 95/60 (72) 94 03/29/19 00:22 136/58 03/29/19 00:20 98.8 68 18 136/58 (84) 93 03/28/19 21:00 Room Air 03/28/19 20:00 97.6 61 18 126/62 (83) 95 03/28/19 18:15 141/50 03/28/19 18:15 74 141/50 03/28/19 16:00 97.8 62 20 132/67 (88) 94 03/28/19 14:24 Nasal Cannula 2.0 28 03/28/19 12:00 97.8 62 20 135/47 (76) 94 03/28/19 12:00 135/47 Height (Feet): 5 Height (Inches): 1.00 Weight (Pounds): 115 Respiratory/Chest: lungs clear Cardiovascular: normal rate, regular rhythm, no gallop/murmur Abdomen: soft, non tender Extremities: no edema Laboratory Tests Test 03/29/19 09:25 White Blood Count Pending Red Blood Count Pending Hemoglobin Pending Hematocrit Pending Mean Corpuscular Volume Pending Mean Corpuscular Hemoglobin Pending Mean Corpuscular Hemoglobin Concent Pending Red Cell Distribution Width Pending Platelet Count Pending Mean Platelet Volume Pending Neutrophils (%) (Auto) Pending Lymphocytes (%) (Auto) Pending Monocytes (%) (Auto) Pending Eosinophils (%) (Auto) Pending Basophils (%) (Auto) Pending Current Medications Medications (Trade) Dose Ordered Sig/Lisa Route PRN Reason Start Time Stop Time Status Last Admin Dose Admin Acetaminophen (Tylenol) 650 mg Q4H PRN ORAL Mild Pain/Temp > 100.5 03/27/19 14:52 04/26/19 14:51 Amlodipine Besylate (Norvasc) 5 mg BID ORAL 03/27/19 18:00 04/18/19 19:59 03/28/19 18:15 Amoxicillin/ Clavulanate Potassium (Augmentin) 500 mg QHS ORAL 03/29/19 21:00 04/05/19 20:59 Apixaban (Eliquis) 2.5 mg BID ORAL 03/27/19 18:00 04/16/19 08:59 03/28/19 18:15 Atorvastatin Calcium (Lipitor) 10 mg BEDTIME ORAL 03/27/19 21:00 04/15/19 20:59 03/28/19 20:09 Docusate Sodium (Colace) 200 mg DAILY ORAL 03/28/19 09:00 04/16/19 08:59 03/28/19 08:35 Epoetin King (Epoetin King(ESRD on dialysis)) 3,000 unit SUBQ 03/27/19 21:00 04/17/19 20:59 03/27/19 21:35 Epoetin King (Epoetin King(ESRD on dialysis)) 4,000 unit SUBQ 03/27/19 21:00 04/17/19 20:59 03/27/19 21:34 Folic Acid (Folate) 1 mg DAILY ORAL 03/28/19 09:00 04/16/19 08:59 03/29/19 08:21 Heparin Sodium (Porcine) (Heparin Sod 1000 units/ml 10ml) 2,000 unit ONCE ONCE IV 03/30/19 09:30 03/30/19 09:31 Hydralazine HCl (Apresoline) 50 mg BID ORAL 03/29/19 18:00 04/28/19 17:59 Hydralazine HCl (Apresoline) 50 mg Q6H PRN ORAL SBP above 160 03/27/19 14:52 04/26/19 14:51 Metoprolol Succinate (Toprol XL) 50 mg DAILY ORAL 03/28/19 09:00 04/23/19 08:59 03/28/19 08:37 Multivitamins Therapeutic (Therapeutic Multivitamin) 1 ea DAILY ORAL 03/28/19 09:00 04/16/19 08:59 03/29/19 08:20 Piperacillin Sod/ Tazobactam Sod 2.25 gm/Dextrose 55 ml @ 110 mls/hr Q8HR IV 03/29/19 06:00 03/29/19 12:00 03/29/19 05:17 Temazepam (Restoril) 15 mg HSPRN PRN ORAL Insomnia 03/27/19 14:53 04/03/19 14:52 03/28/19 20:08 Tramadol HCl (Ultram) 50 mg Q6H PRN ORAL Moderate Pain (Pain Scale 4-6) 03/27/19 14:53 04/03/19 14:52 Vancomycin HCl 1 gm/Sodium Chloride 275 ml @ 183.708 mls/hr ONCE IVPB 03/29/19 18:00 03/29/19 19:00 Rm Coughlin MD Mar 29, 2019 10:12
[2019-03-29 10:29] LABS: BASOPHILS % (AUTO) 1.2 % (0.0-2.0); EOSINOPHILS % (AUTO) 1.9 % (0.0-3.0); HEMATOCRIT 25.8 % (37.0-47.0); HEMOGLOBIN 8.6 G/DL (12.0-16.0); LYMPHOCYTES % (AUTO) 26.1 % (20.0-45.0); MEAN CORPUSCULAR VOLUME 96 FL (80-99); MONOCYTES % (AUTO) 11.9 % (1.0-10.0); NEUTROPHILS % (AUTO) 58.8 % (45.0-75.0); PLATELET COUNT 179 K/UL (150-450); RED CELL DISTRIBUTION WIDTH 16.2 % (11.6-14.8)
[2019-03-29 12:00] VITALS: BP 148/55
[2019-03-29] MEDS ORDERED: AMLODIPINE BESYL5 MG ORAL ×2 (12:10→12:11)
[2019-03-29] MEDS ORDERED: ELIQUIS2.5 MG PO ×2 (12:12→12:13)
[2019-03-29] MEDS ORDERED: FAMOTIDINE20 MG ORAL (12:14)
[2019-03-29] MEDS ORDERED: HYDRALAZINE HCL50 MG ORAL (12:15)
[2019-03-29] MEDS ORDERED: LEVOFLOXACIN250 MG ORAL (12:16)
[2019-03-29] MEDS ORDERED: METOPROLOL SUCC50 MG ORAL (12:17)
[2019-03-29] MEDS ORDERED: AMOX TR-K CLV1 EAC1 ORAL (12:27)
--- NOTE | 2019-03-29 17:59 | General Progress Note ---
Assessment/Plan Status: stable Assessment/Plan: Assessment - abnormal LFT - now just minimal Alk phos elevationi - CHF / hepatic congestion - rhabdo / CPK - viral / hepatitis - structural / mass - Anemia - renal failure - CHF Recommendations - follow LFT - MRI cancelled due to refusal - can re-address at later date, or do ERCP if needed - f/u hepatitis serologies - negative - optimize cardiac status - check OB - (+) Subjective Allergies: Coded Allergies: No Known Allergies (Unverified , 03/16/19) Subjective above noted NAD no abd pain Refused MRI OB (+) - refusing GI w/u d/w son over the phone, all differential dx discussed, including malignancy son wants to hold off on any w/u at this time. He will discuss with patient as outpatient Objective Last 24 Hour Vital Signs Date Time Temp Pulse Resp B/P (MAP) Pulse Ox O2 Delivery O2 Flow Rate FiO2 03/29/19 12:00 97.7 74 18 148/55 (86) 92 03/29/19 09:00 Room Air 03/29/19 08:21 75 118/47 03/29/19 08:21 75 118/47 03/29/19 08:00 98.2 75 19 118/47 (70) 94 03/29/19 05:39 95/60 03/29/19 04:00 98.7 74 19 95/60 (72) 94 03/29/19 00:22 136/58 03/29/19 00:20 98.8 68 18 136/58 (84) 93 03/28/19 21:00 Room Air 03/28/19 20:00 97.6 61 18 126/62 (83) 95 03/28/19 18:15 141/50 03/28/19 18:15 74 141/50 Intake and Output 03/28/19 03/29/19 19:00 07:00 Intake Total 2590 ml 200 ml Balance 2590 ml 200 ml Intake Oral 480 ml 200 ml IV Total 110 ml Hemodialysis 2000 ml # Voids 1 # Bowel Movements 1 1 Laboratory Tests 03/29/19 09:25: White Blood Count 8.0, Red Blood Count 2.70L, Hemoglobin 8.6L, Hematocrit 25.8L , Mean Corpuscular Volume 96, Mean Corpuscular Hemoglobin 31.7H, Mean Corpuscular Hemoglobin Concent 33.1, Red Cell Distribution Width 16.2H, Platelet Count 179, Mean Platelet Volume 7.1, Neutrophils (%) (Auto) 58.8, Lymphocytes (%) (Auto) 26.1, Monocytes (%) (Auto) 11.9H, Eosinophils (%) (Auto) 1.9, Basophils (%) (Auto) 1.2 Height (Feet): 5 Height (Inches): 1.00 Weight (Pounds): 115 Objective WDWN NCAT supple CTA RR abd soft ND no edema Kyung Stevens MD Mar 29, 2019 17:59
[2019-03-29] MEDS ORDERED: Vancomycin 1 GM in NS 275 ML IVPB SCH (18:00)
[2019-03-29] MEDS ORDERED: HydrALAZINE 50mg tab ORAL SCH (18:00)
--- NOTE | 2019-03-29 21:30 | Discharge Summary ---
DATE OF ADMISSION: 03/16/2019 DATE OF DISCHARGE: 03/29/2019 ADMISSION DIAGNOSES: 1. Bradycardia. 2. Shortness of breath. 3. Respiratory failure. 4. Diabetes. 5. End-stage renal disease, on chronic hemodialysis. 6. Paroxysmal atrial fibrillation. 7. Chronic anemia. 8. DVT. 9. Osteoporosis. 10. History of cholecystectomy. 11. Pneumonia. 12. Rapid atrial fibrillation. 13. SVT. 14. History of hypertension. 15. Pleural effusion. 16. Cholangitis. DISCHARGE DIAGNOSES: 1. Bradycardia. 2. Shortness of breath. 3. Respiratory failure. 4. Diabetes. 5. End-stage renal disease, on chronic hemodialysis. 6. Paroxysmal atrial fibrillation. 7. Chronic anemia. 8. DVT. 9. Osteoporosis. 10. History of cholecystectomy. 11. Pneumonia. 12. Rapid atrial fibrillation. 13. SVT. 14. History of hypertension. 15. Pleural effusion. 16. Cholangitis. HOSPITAL COURSE: The patient was admitted with complaints of shortness of breath and respiratory failure secondary to bradycardia from some of her cardiac medications. She was initially admitted to intensive care unit where she was placed on dopamine for chronotropic support. She was weaned off dopamine. Her blood pressure always remained stable. Her Cardizem and clonidine were discontinued. Her bradycardia improved and in fact, the patient then had episodes of SVT. The patient required amiodarone and later Cardizem drip, but was eventually weaned back to oral medication. She remained in sinus rhythm. Her hospital course was complicated by sepsis secondary to pneumonia. There is questionable cholangitis. She had a V/Q scan and a hepatobiliary scan, which was concerning for possible obstruction, but the patient was clinically stable. In light of her overall poor functional status and extensive aggressive workup, surgery was deferred. The patient was followed clinically by the surgeon and she remained stable. On discharge, the patient was stable. She will be discharged back to the [facility] facility. She will be continued on p.o. antibiotics. Of note, she was slightly more anemic. She will be positive stool, but her stool was otherwise appeared unremarkable and she had no obvious signs of any active bleeding. She will be monitored closely at the halfway facility. DISCHARGE MEDICATIONS: Please see discharge medication list for discharge medications. ACTIVITIES: As tolerated. FOLLOWUP: The patient will be followed up in one to two days by her regular physician at the [facility]. Edwardo Liu M.D. DR: RODRIGUEZ JOB#: [id number] CC:
--- NOTE | 2019-03-30 00:30 | Progress Note ---
DATE: 03/29/2019 CARDIOLOGY PROGRESS NOTE SUBJECTIVE: No chest pain. No shortness of breath. No nausea, vomiting, or abdominal pain. The patient has refused MRI as well as endoscopy. OBJECTIVE: VITAL SIGNS: Blood pressure 148/55, heart rate 74, and respiratory rate 18. LUNGS: Clear. CARDIAC: Regular. ABDOMEN: Soft. EXTREMITIES: No edema. IMPRESSION: 1. Resolving transaminitis. 2. Resolved rhabdomyolysis. 3. Paroxysmal atrial fibrillation. 4. End-stage renal disease. 5. Hypertensive heart disease with chronic diastolic congestive heart failure. 6. Stable cardiac rhythm. 7. Resolved bradycardia with stabilization of metabolic parameters. PLAN: 1. Stable for detention facility. 2. Monitor hemoglobin for signs of additional bleeding. 3. Respiratory hygiene. 4. Nutritional support. 5. Maintain current cardiovascular regimen. 6. Titrate maintenance diuretic dosing based on clinical parameters. Haroon Lou M.D. DR: [place] JOB#: [id number] CC:
[2019-03-30] MEDS ORDERED: Heparin Sod 1000 units/ml 10ml IV ONE (09:30)
== END 2019-03-29 16:28 | DRG 308 ==
LOC: EDBD 16:40 → EMR 17:38 → ICU 17:44 → EDBEDREQ 18:21 → 2E 03-21 13:09 → 4E 03-27 15:01
PROC: 06HM33Z Insertion of Infusion Device into Right Femoral Vein, Percutaneous Approach (ICD-10-PCS; principal; 2019-03-16)
PROC: 5A1D70Z Performance of Urinary Filtration, Intermittent, Less than 6 Hours Per Day (ICD-10-PCS; 2019-03-17)
DX: R00.1 Bradycardia, unspecified (principal); N18.6 End stage renal disease; A41.9 Sepsis, unspecified organism; J18.9 Pneumonia, unspecified organism; I50.33 Acute on chronic diastolic (congestive) heart failure; J96.90 Respiratory failure, unspecified, unspecified whether with hypoxia or hypercapnia; I13.2 Hypertensive heart and chronic kidney disease with heart failure and with stage 5 chronic kidney disease, or end stage renal disease; E44.0 Moderate protein-calorie malnutrition; R57.9 Shock, unspecified; K83.09 Other cholangitis; M62.82 Rhabdomyolysis; I95.2 Hypotension due to drugs; T46.1X5A Adverse effect of calcium-channel blockers, initial encounter; Y92.9 Unspecified place or not applicable; E11.22 Type 2 diabetes mellitus with diabetic chronic kidney disease; Z99.2 Dependence on renal dialysis; E11.21 Type 2 diabetes mellitus with diabetic nephropathy; Z68.21 Body mass index [BMI] 21.0-21.9, adult; J45.909 Unspecified asthma, uncomplicated; M81.0 Age-related osteoporosis without current pathological fracture; D63.1 Anemia in chronic kidney disease; Z86.718 Personal history of other venous thrombosis and embolism; I48.0 Paroxysmal atrial fibrillation; I27.20 Pulmonary hypertension, unspecified; R74.0 Nonspecific elevation of levels of transaminase and lactic acid dehydrogenase [LDH]; I47.1 Supraventricular tachycardia
CPT/HCPCS: 36415; 71045; 76700; 80048; 80053; 80076; 80202; 81003; 82270; 82550; 82553; 83036; 83605; 83735; 83880; 84100; 84443; 84484; 85025; 85610; 85730; 86705; 86706; 86709; 86710; 86803; 86850; 86900; 86901; 87040; 87081; 87340; 93005; 93306; 96361; 96365; 99291; J7030